=== PATIENT | female | born 1950 | race Caucasian/White ===

== ENCOUNTER 2017-02-27 19:17 | Inpatient (IN) | payer MEDICARE, MEDICAID ==
--- NOTE | 2017-02-27 20:10 | ED Physician Chart ---
Chief Complaint/HPI - Patient Information Date Seen:: 02/27/17 Time Seen:: 19:50 Chief Complaint:: agitation and hallucinations History of Present Illness:: Pt. sent for julee-psych admit, Dr. Godfrey, Dr. Drummond. delusions, agitation. Vitals:: Vital Signs - 8 hr 02/27/17 19:30 Temp 97.7 F HR 80 RR 18 BP 134/62 O2 Sat % 98 Historian:: EMS Review of Systems - Review of Systems General/Constitutional: No fever, No chills Skin: No skin lesions Head: No headache ENT: No earache, No sore throat Neck: No neck pain Cardio Vascular: No chest pain, No palpitations Pulmonary: No SOB, No cough GI: No nausea, No vomiting, No diarrhea G/U: No dysuria Psychiatric: Prior psych history Neurological: No syncope, No focal symptoms Past Medical History - Past Medical History Past Medical History: HTN, DM Family History: Diabetes [place] Social History: Non Smoker, No Alcohol Surgical History: other (difficult historian) Psychiatricy History: Schizophrenia Medication Reviewed:: vits, iron, glipizide, metformin, januvia, risperdal, lithium, ativan Family Medical History - Family Member Mother History Unknown: Yes (no known congenital disease) Physical Exam - Physical Examination General/Constitutional: Awake, Well-developed, well-nourished, Alert, No distress, Non-toxic appearing Head: Atraumatic Eyes: Lids, conjuctiva normal, PERRL, EOMI Skin: Nl inspection ENMT: External ears, nose nl Neck: Nontender, Full ROM w/o pain Respiratory: Nl effort/Exclusion, Clear to Auscultation Cardio Vascular: RRR, No murmur, gallop, rubs GI: No tenderness/rebounding/guarding : No CVA tenderness Extremities: No tenderness or effusion Neuro/Psych: Normal motor strength, Judgement/insight normal Other Neuro/Psych comments:: Pt. seems confused or uncooperative regarding date, but generally is oriented to her situation. Knows she is in an ER. Labs/Radiology/EKG Results - Lab Results Results: CXR: NAD. No cardiomeg. No free air or fluid. no infiltrate. EKG: NSR at 86. nl. axis. Poor R wave progression. No acute ST changes. WBC 11.2, H/H = 13.3/39.2 CMP shows Na of 127. BUN/creat = 18/0.7 Amylase and lipase are normal or low. Cardiac markers are normal EtOH negligible. TSH normal Li level pending ED Septic Shock - . Is Septic Shock (SBP<90, OR Lactate>4 mmol\L) present?: No - <6hrs of presentation: Vital Signs: Vital Signs - 8 hr // 19:30 Temp 97.7 F HR 80 RR 18 BP 134/62 O2 Sat % 98 Reassessment (Disposition) - Diagnosis Diagnosis:: Dx: 1. Acute agitation, julee-psych evaluation 2. Hyponatremia - Patient Disposition Accepting Physician:: Dr. Godfrey Time Called:: 2209 Time Responded:: 22:10 Admitted to:: [facility] Admitting Medical Physician:: Dr. Godfrey Admitting Psych Physician:: Dr. Baker Condition at Disposition:: Stable
[2017-02-27 20:45] LABS: % BASOPHILS 0.8 % (0.0-2.0); % EOSINOPHILS 5.7 % (0.0-5.0); % LYMPHOCYTES 15.6 % (20.0-50.0); % MONOCYTES 3.9 % (2.0-10.0); HEMATOCRIT 39.2 % (35.0-45.0); HEMOGLOBIN 13.3 gm/dL (11.7-16.1); MEAN CELL VOLUME 80.5 fl (81-100); MEAN CORPUSCULAR HEMOGLOBIN 27.3 pg (27.0-31.0); MEAN CORPUSCULAR HGB CONC 33.9 pg (28.0-36.0); MEAN PLATELET VOLUME 6.8 fl; NEUTROPHILE ABSOLUTE 8.4 Th/cmm (1.8-8.0); PLATELET COUNT 551 Th/cmm (150-400); RED BLOOD COUNT 4.87 Mil/cmm (3.80-5.20); RED CELL DISTRIBUTION WIDTH 14.7 % (11.5-20.0); WHITE BLOOD COUNT 11.2 Th/cmm (4.8-10.8)
[2017-02-27 20:59] LABS: ALB/GLOB RATIO 1.4 (1.0-1.8); ALKALINE PHOSPHATASE 84 U/L (34-104); AMYLASE SERUM 27 U/L (29-103); ANION GAP 9.6 (7.0-16.0); BILIRUBIN,TOTAL 0.3 mg/dL (0.3-1.0); BUN - UREA NITROGEN 18 mg/dL (7-25); BUN/CREATININE RATIO 25.7; CALCIUM SERUM 10.5 mg/dL (8.6-10.3); CARBON DIOXIDE 25.4 mEq/L (21.0-31.0); CHLORIDE 96 mEq/L (98-107); CREATININE - SERUM 0.7 mg/dL (0.6-1.2); GLUCOSE 178 mg/dL (70-105); LIPASE 46 U/L (11-82); SGOT 17 U/L (13-39); SGPT/ALT 18 U/L (7-52); SODIUM SERUM 127 mEq/L (136-145)
[2017-02-27 21:21] LABS: CREATINE KINASE MB 1.3 ng/mL (0.6-6.3)
[2017-02-27] MEDS ORDERED: Sodium Chloride 0.9% 1,000 ML IV ONE (21:46)
[2017-02-27] MEDS ORDERED: Magnesium Hydroxide (MOM) 30 mL UDC PO PRN (22:14)
[2017-02-27 22:26] LABS: URINE BILIRUBIN NEGATIVE (NEGATIVE); URINE BLOOD NEGATIVE (NEGATIVE); URINE COLOR YELLOW; URINE EPITHELIAL CELLS FEW /lpf (FEW); URINE GLUCOSE (UA) NEGATIVE (NEGATIVE); URINE KETONE NEGATIVE (NEGATIVE); URINE PROTEIN NEGATIVE (NEGATIVE); URINE RBC 0-2 /hpf (0-5); URINE UROBILINOGEN 0.2 E.U./dL (0.2 - 1.0); URINE WBC 0-2 /hpf (0-5)
[2017-02-27 22:27] LABS: URINE BACTERIA FEW /hpf (NONE SEEN)
[2017-02-27 22:31] LABS: AMPHETAMINE URINE NEGATIVE (NEGATIVE); BARBITURATES URINE NEGATIVE (NEGATIVE); METHADONE URINE NEGATIVE (NEGATIVE)
[2017-02-28 00:11] VITALS: BP 151/70
[2017-02-28] MEDS ORDERED: Non-Formulary Item 1 EA (Melatonin [Melatonin] 6 MG) PO PRN (00:16)
--- NOTE | 2017-02-28 00:31 | Admit Criteria Form ---
Admit Criteria Forms - Admit Criteria Diagnosis: PSYCHIATRIC DISORDERS Clinical Indications for Inpatient Care (Place 'X' for any and all applicable criteria): Ongoing inpatient care may be needed for ANY ONE of the following(1)(2)(3)(4)(6) (7)(8): [ ]I. Danger to self or others not manageable at lower level of care. [ ]II. Grave disability (eg, inability to perform self care necessary at lower level of care) [ ]III. Agitation or inappropriate behavior interfering with care for primary condition (eg, attempting to discontinue lines or drains prematurely, unable to cooperate with respiratory care) [X]IV. Severe disability or disorder indicated by ALL of the following: [X]a) Severe behavioral health disorder-related symptoms or condition indicated by ANY ONE of the following: [ ]i) Severe problem with cognition, memory, judgment, or impulse control [X]ii) Severe clinical manifestations (eg, hallucinations, delusions, other acute psychotic symptoms, salome, extreme agitation or anxiety) [X]b) Patient management at lower level of care is not feasible until acute intervention or modification is initiated. Extended stay beyond goal length of stay for the primary condition may be indicated when ANY ONE of the following is present: (1)(2)(3)(4): [ ]a) Patient is a danger to self or others and not manageable at lower level of care. [ ]b) Behavior crisis management, including physical or chemical restraints, is required and is not available at a lower level of care. [ ]c) Behavioral symptoms (e.g., agitation, somnolence, inappropriate behavior) are present, and are not manageable at a lower level of care. [ ]d) Patient cannot understand follow-up treatment and crisis plan. [ ]e) Provider and supports are not sufficiently available at lower level of care. [ ]f) Patient cannot participate (e.g., verify absence of plan for harm) and is in needed of monitoring. The original [facility] content created by [facility] has been revised. The portions of the content which have been revised are identified through the use of italic text or in bold, and [facility] has neither reviewed nor approved the modified material. All other unmodified content is copyright [facility]. Please see references footnoted in the original [facility] edition 2016 Admit Criteria Met?: Yes
[2017-02-28] MEDS: INSULIN ASPART, RECOMBINANT 100 UNITS/ML SUBQ SCH ×4 (07:22→21:00)
[2017-02-28] MEDS ORDERED: Non-Formulary Item 1 EA (Metformin Hcl [Metformin Hcl Er] 1,000 MG) PO SCH (09:00)
[2017-02-28] MEDS ORDERED: Calcium Carb/Vit D 500 mg/200 U Tab PO SCH (09:00)
[2017-02-28] MEDS: Ferrous Sulfate 325 MG TAB PO SCH (09:41)
[2017-02-28] MEDS: Multivitamin Tab PO SCH (09:41)
--- NOTE | 2017-02-28 09:53 | Diagnostic Imaging Report ---
Portable chest x-ray History: Cough Allowing for portable technique the heart size is normal. No focal pulmonary parenchymal processes. No hilar or mediastinal abnormalities. Impression: No acute abnormalities.
--- NOTE | 2017-02-28 20:01 | History & Physical ---
CHIEF COMPLAINT: Medical evaluation and clearance and the patient admitted to inpatient psych. HISTORY OF PRESENT ILLNESS: This is a 67-year-old female with history of diabetes, hypertension, hypercholesterolemia was admitted from nursing facility secondary to agitation. The patient apparently not eating well at the nursing facility and not taking her medications. The patient denies chest pain or shortness of breath. PAST MEDICAL HISTORY: As mentioned in the history of present illness. PAST SURGICAL HISTORY: Denies any surgeries in the past. ALLERGIES: BACTRIM AND TRIMETHOPRIM. MEDICATIONS: The patient is on aspirin, calcium, fenofibrate, glipizide, lithium, lorazepam, magnesium, melatonin, metformin, multivitamin, Trileptal, Januvia, risperidone. FAMILY HISTORY: Noncontributory. SOCIAL HISTORY: The patient is a nonsmoker and nondrinker. REVIEW OF SYSTEMS: This is limited. The patient ____ more questions. We will try to get more information from the Sister, Diana Durant, from [place], number ____. We will also try to get information from nursing staff at [facility], number [phone] as well as from Dr. Haque who normally follows the patient. PHYSICAL EXAMINATION: VITAL SIGNS: Blood pressure 126/____, respirations 18, pulse 69, temperature 97.1. GENERAL: Elderly female, appears her stated age. NECK: Supple. No mass. LUNGS: Equal breath sounds, otherwise clear to auscultation. HEART: Regular rhythm without appreciable murmurs. ABDOMEN: Soft and nontender. EXTREMITIES: Positive excoriation. Atrophy. Dry skin. NEUROLOGIC: Limited, moving all 4 extremities. LABORATORY DATA: WBC ____, hemoglobin 13.3, platelets 551. Sodium 127, potassium 4.0, BUN 18, creatinine 0.7. Blood sugar 178. Calcium 10.5. ASSESSMENT AND PLAN: Diabetes, anemia, hypertension, hypercholesterolemia, leukocytosis, hyponatremia, gastroesophageal reflux disease, hyperglycemia, thrombocytosis. We will continue the patient on ADA diet and insulin sliding scale. We will make some adjustment. We will correct electrolyte abnormalities, sodium ____ was added. We will continue current care. Psychiatry to manage the patient for psych issues. The patient to follow up with her regular physician upon discharge. JOB# [id number]
[2017-02-28] MEDS ORDERED: FENOFIBRATE MICRONIZED 67 MG PO SCH (21:00)
[2017-02-28] MEDS: Fenofibrate, Micronized 134 mg Cap PO SCH (21:01)
--- NOTE | 2017-03-01 04:49 | Psychosocial Evaluation ---
FACILITY: [facility] PATIENT NAME: JOSE VELAZQUEZ MR#: [id number] CLINICIAN: Lorne Drummond M.D. DATE OF ADMISSION: 02/27/2017 DATE OF VISIT: 02/28/2017 IDENTIFICATION: This is a 67-year-old female admitted on voluntary basis. HISTORY OF PRESENT ILLNESS: The patient has a history of schizophrenia. She is decompensated with increase in aggression, paranoia, or striking out at staff, extremely delusional. She believes people are conspiring against her. She is unable to care for self, also still very delusional. She believes that the people are trying to kill her and she is hearing voices. She is admitted on ____ status. PAST PSYCHIATRIC HISTORY: Prior treatment for depression and psychosis. PAST MEDICAL HISTORY: Deferred. CURRENT MEDICATIONS: [place], Trileptal, and Risperdal. SOCIAL HISTORY: Lives in long term. She is . MENTAL STATUS: Alert and oriented x 3. Speech is slow. Thought process is tangential. Thought content is positive for paranoid delusions and hallucinations. Mood is dysphoric and anxious. Judgment is extremely poor. She refuses memory testing. DIFFERENTIAL DIAGNOSES: AXIS I: Schizoaffective, acute aspiration. AXIS II: Deferred. AXIS III: None. PLAN: To admit to inpatient unit for medication management, group therapy, and individual therapy. ESTIMATED LENGTH OF STAY: 7 days. DISCHARGE CRITERIA: Stable med with adequate discharge plan. JOB# [id number] JAGDISH/DAMAIR
[2017-03-01] MEDS: INSULIN ASPART, RECOMBINANT 100 UNITS/ML SUBQ SCH ×4 (06:59→20:27)
[2017-03-01] MEDS: Ferrous Sulfate 325 MG TAB PO SCH (09:07)
[2017-03-01] MEDS: Multivitamin Tab PO SCH (09:07)
--- NOTE | 2017-03-01 15:47 | Internal Medicine Prog Note ---
Internal Medicine Subjective - Subjective Patient seen and examined:: with staff, chart reviewed Patient is:: verbal, interactive Per staff patient is:: no adverse event, no episodes of fall, confused Internal Medicine Objective - Results Result Diagrams: 02/27/17 20:32 02/27/17 20:32 Recent Labs: Laboratory Last Values WBC 11.2 Th/cmm (4.8-10.8) H 02/27/17 20:32 RBC 4.87 Mil/cmm (3.80-5.20) 02/27/17 20:32 Hgb 13.3 gm/dL (11.7-16.1) 02/27/17 20:32 Hct 39.2 % (35.0-45.0) 02/27/17 20:32 MCV 80.5 fl (81-100) L 02/27/17 20:32 MCH 27.3 pg (27.0-31.0) 02/27/17 20: MCHC Differential 33.9 pg (28.0-36.0) 02/27/17 20:32 RDW 14.7 % (11.5-20.0) 02/27/17 20:32 Plt Count 551 Th/cmm (150-400) H 02/27/17 20:32 MPV 6.8 fl 02/27/17 20:32 Neutrophils % 74.0 % (40.0-80.0) 02/27/17 20:32 Lymphocytes % 15.6 % (20.0-50.0) L 02/27/17 20:32 Monocytes % 3.9 % (2.0-10.0) 02/27/17 20:32 Eosinophils % 5.7 % (0.0-5.0) H 02/27/17 20:32 Basophils % 0.8 % (0.0-2.0) 02/27/17 20:32 Sodium 127 mEq/L (136-145) L 02/27/17 20:32 Potassium 4.0 mEq/L (3.5-5.1) 02/27/17 20:32 Chloride 96 mEq/L (98-107) L 02/27/17 20:32 Carbon Dioxide 25.4 mEq/L (21.0-31.0) 02/27/17 20:32 Anion Gap 9.6 (7.0-16.0) 02/27/17 20:32 BUN 18 mg/dL (7-25) 02/27/17 20:32 Creatinine 0.7 mg/dL (0.6-1.2) 02/27/17 20:32 Est GFR ( Amer) > 60.0 ml/min (>90) 02/27/17 20:32 Est GFR (Non-Af Amer) > 60.0 ml/min 02/27/17 20:32 BUN/Creatinine Ratio 25.7 02/27/17 20:32 Glucose 178 mg/dL (70-105) H 02/27/17 20:32 POC Glucose 244 MG/DL (70 - 105) H 03/01/17 11:29 Calcium 10.5 mg/dL (8.6-10.3) H 02/27/17 20:32 Total Bilirubin 0.3 mg/dL (0.3-1.0) 02/27/17 20:32 AST 17 U/L (13-39) 02/27/17 20:32 ALT 18 U/L (7-52) 02/27/17 20:32 Alkaline Phosphatase 84 U/L (34-104) 02/27/17 20:32 Creatine Kinase 50 U/L (30-223) 02/27/17 20:32 CK-MB (CK-2) 1.3 ng/mL (0.6-6.3) 02/27/17 20:32 Troponin I 0.01 ng/mL (0.01-0.05) 02/27/17 20:32 Total Protein 7.8 gm/dL (6.0-8.3) 02/27/17 20:32 Albumin 4.6 gm/dL (3.7-5.3) 02/27/17 20:32 Globulin 3.2 gm/dL 02/27/17 20:32 Albumin/Globulin Ratio 1.4 (1.0-1.8) 02/27/17 20:32 Amylase 27 U/L (29-103) L 02/27/17 20:32 Lipase 46 U/L (11-82) 02/27/17 20:32 TSH 1.36 uIU/ml (0.34-5.60) 02/27/17 20:32 Urine Source CLEAN C 02/27/17 21:55 Urine Color YELLOW 02/27/17 21:55 Urine Clarity HAZY (CLEAR) 02/27/17 21:55 Urine pH 7.0 02/27/17 21:55 Ur Specific [place] 1.020 (1.005-1.030) 02/27/17 21:55 Urine Protein NEGATIVE mg/dL (NEGATIVE) 02/27/17 21:55 Urine Glucose (UA) NEGATIVE mg/dL (NEGATIVE) 02/27/17 21:55 Urine Ketones NEGATIVE mg/dL (NEGATIVE) 02/27/17 21:55 Urine Blood NEGATIVE (NEGATIVE) 02/27/17 21:55 Urine Nitrate NEGATIVE (NEGATIVE) 02/27/17 21:55 Urine Bilirubin NEGATIVE (NEGATIVE) 02/27/17 21:55 Urine Urobilinogen 0.2 E.U./dL (0.2 - 1.0) 02/27/17 21:55 Ur Leukocyte Esterase NEGATIVE (NEGATIVE) 02/27/17 21:55 Urine RBC 0-2 /hpf (0-5) 02/27/17 21:55 Urine WBC 0-2 /hpf (0-5) 02/27/17 21:55 Ur Epithelial Cells FEW /lpf (FEW) 02/27/17 21:55 Urine Bacteria FEW /hpf (NONE SEEN) 02/27/17 21:55 Urine Opiates Screen NEGATIVE (NEGATIVE) 02/27/17 21:55 Urine Methadone Screen NEGATIVE (NEGATIVE) 02/27/17 21:55 Ur Barbiturates Screen NEGATIVE (NEGATIVE) 02/27/17 21:55 Ur Tricyclics Screen NEGATIVE (NEGATIVE) 02/27/17 21:55 Ur Phencyclidine Scrn NEGATIVE (NEGATIVE) 02/27/17 21:55 Amphetamines Screen NEGATIVE (NEGATIVE) 02/27/17 21:55 U Methamphetamines Scrn NEGATIVE (NEGATIVE) 02/27/17 21:55 U Benzodiazepines Scrn NEGATIVE (NEGATIVE) 02/27/17 21:55 Svensen 0.23 MEQ/L (0.50-1.00) 02/28/17 20:33 U Cocaine Metab Screen NEGATIVE (NEGATIVE) 02/27/17 21:55 U Cannabinoids Screen NEGATIVE (NEGATIVE) 02/27/17 21:55 Ethyl Alcohol < 10 mg/dL (0-10) 02/27/17 20:32 RPR NONREACTIVE (NONREACTIVE) 02/27/17 20:32 - Physical Exam Vitals and I&O: Vital Signs Temp 97.4 F 03/01/17 07:00 Pulse 71 03/01/17 08:00 Resp 18 03/01/17 08:00 BP 119/68 03/01/17 07:00 Pulse Ox 97 03/01/17 07:00 Intake & Output 02/28/17 03/01/17 03/01/17 18:59 06:59 18:59 Intake Total 960 Balance 960 Weight (lbs) 55.928 kg Intake: Oral 960 Other: # Voids 3 2 # Bowel Movements 1 Active Medications: Current Medications Acetaminophen (Tylenol) 650 mg PO Q4HR PRN PRN Reason: Pain or Fever >101 Stop: 04/28/17 22:15 Aspirin (Ecotrin) 81 mg PO DAILY ON LICENSE OF [facility] Stop: 04/29/17 08:59 Last Admin: 03/01/17 09:07 Dose: 81 mg Calcium Carbonate (Os-Magno) 500 mg PO DAILY RICKY Stop: 04/29/17 08:59 Last Admin: 03/01/17 09:07 Dose: 500 mg Fenofibrate (Tricor) 134 mg PO HS ON LICENSE OF [facility] Stop: 04/29/17 20:59 Last Admin: 02/28/17 21:01 Dose: 134 mg Ferrous Sulfate (Iron) 325 mg PO DAILY ON LICENSE OF [facility] Stop: 04/29/17 08:59 Last Admin: 03/01/17 09:07 Dose: 325 mg Glipizide (Glucotrol) 20 mg PO BIDAC ON LICENSE OF [facility] Stop: 04/29/17 07:29 Last Admin: 03/01/17 06:38 Dose: 20 mg Insulin Aspart (Novolog) 0 units SUBQ ACHS RICKY PRN Reason: Protocol Stop: 04/29/17 07:29 Last Admin: 03/01/17 11:33 Dose: 2 units Svensen Carbonate (Eskalith) 450 mg PO HS ON LICENSE OF [facility] Stop: 04/29/17 20:59 Last Admin: 02/28/17 21:01 Dose: 450 mg Lorazepam (Ativan) 2 mg PO Q6HR PRN PRN Reason: Agitation Magnesium Hydroxide (Milk Of Magnesia) 30 ml PO HS PRN PRN Reason: Constipation Stop: 04/28/17 22:13 Metformin HCl (Glucophage) 1,000 mg PO BID RICKY Stop: 04/29/17 08:59 Last Admin: 03/01/17 09:07 Dose: 1,000 mg Multivitamins/Vitamin C (Theragran) 1 tab PO DAILY RICKY Stop: 04/29/17 08:59 Last Admin: 03/01/17 09:07 Dose: 1 tab Mupirocin (Bactroban Oint) 1 appl TP BID ON LICENSE OF [facility] Stop: 03/06/17 16:59 Oxcarbazepine (Trileptal) 600 mg PO BID RICKY PRN Reason: Protocol Stop: 04/29/17 08:59 Last Admin: 03/01/17 09:08 Dose: 600 mg Risperidone (Risperdal) 1 mg PO BID RICKY PRN Reason: Protocol Stop: 04/29/17 08:59 Last Admin: 03/01/17 09:07 Dose: 1 mg Sitagliptin Phosphate (Januvia) 100 mg PO DAILY RICKY Stop: 04/29/17 08:59 Last Admin: 03/01/17 09:07 Dose: 100 mg Sodium Chloride (Nacl Tab) 1 gm PO BID RICKY Stop: 04/29/17 08:59 Last Admin: 03/01/17 09:07 Dose: 1 gm General: demented HEENT: NC/AT, PERRLA Neck: Supple, No JVD Lungs: CTAB Cardiovascular: RRR, Normal S1, Normal S2 Abdomen: soft non-tender, globular, positive bowel sound Extremities: excoriation Neurological: disorganized, unable to follow command Internal Medicine Assmt/Plan - Assessment Assessment: dm \anemia htn elevated chol low na gerd hyperglecemia - Plan Plan: ada diet low na diet cont on statin cont on ppi dw rn Nutritional Asmnt/Malnutr-PDOC - Dietary Evaluation Malnutrition Findings (Please click <Entered> for more info): Nutritional Asmnt/Malnutrition Start: 03/01/17 15: 04 Text: Status: Complete Freq: Document 03/01/17 15:04 GSUN (Rec: 03/01/17 15:20 [email or web address]) Nutritional Asmnt/Malnutrition Patient General Information Nutritional Screening Consult Diagnosis Agitation Pertinent Medical Hx/Surgical Hx DM, HTN, hypercholesterolemia, GERD, thrombocytosis Subjective Information 67 year old female from SNF. RD consult for wounds, scar tissue. Pt is a poor historian , able to repeatedly ask for coffee, however kept going off topic and was unable to answer RD's questions. Pt appeared thin, mild wasting to chest and legs noted. Pt is edentulous, denied difficulties chewing. Avg PO intake 100% of meals, meeting nutritional needs. Current Diet Order/ Nutrition Support Regular Pertinent Medications Os-Magno, Iron, Glucotrol, Novolog, MOM, Glucophage, Theragran Pertinent Labs 02/27: glucose 178H. Nutritional Hx/Data Height 1.7 m Height (Calculated Centimeters) 170.2 Current Weight (lbs) 55.928 kg Weight (Calculated Kilograms) 55.9 Weight (Calculated Grams) 22628.9 Wallace Body Weight 135 Weight Status Approriate GI Symptoms Food Allergies No Usual diet at home [place]: regular, EMMA, all vegetables cooked, thin liquids Skin Integrity/Comment: Prasanna 22. Current %PO Good (75-100%) Estimated Nutritional Goals Calories/Kcals/Kg IBW 135lb/61.4kg Kcals Calculated 1535-1842kcal (25-30kcal/kg) Protein g/kg: IBW Protein Calculated 61g (1g/kg) Fluid: ml 1535-1842ml (1ml/kcal) Nutritional Problem 1. Problem Problem Altered nutrition related laboratory values related to Etiology DM aeb Signs/Symptoms: H&P, elevated glucose levels, pt is on DM medications Intervention/Recommendation Comments 1. Recommend [address] to promtoe glycemic control. Expected Outcomes/Goals Expected Outcomes/Goals 1. PO intake continue to meet at least 75% of estimated nutritional needs.
[2017-03-01] MEDS: Fenofibrate, Micronized 134 mg Cap PO SCH (20:48)
--- NOTE | 2017-03-01 22:48 | Progress Notes ---
The patient is seen in inpatient unit. The patient is on medications for severe psychosis on trial____ and Risperdal, Ativan, Trileptal. She has severe mood swings, paranoid delusions, irritability and agitation. She is responding to internal stimuli. She is on trial of medications. The patient has a history of conservatorship. She remains highly delusional, hearing voices, responding to internal stimuli, no ____way to take care of herself, feels there is something wrong with her, people are bothering her and conspiring against her. Her speech is fragmented. Her behavior is labile, she has difficulty going to group therapy and individual therapy. Plan to continue close observation, medication management, titrate medications for symptom relief. We will provide injectable medication if she ____refuse oral medication. JOB# [id number]
[2017-03-02] MEDS: INSULIN ASPART, RECOMBINANT 100 UNITS/ML SUBQ SCH ×4 (06:46→20:57)
[2017-03-02] MEDS: Multivitamin Tab PO SCH (09:03)
[2017-03-02] MEDS: Ferrous Sulfate 325 MG TAB PO SCH (09:04)
[2017-03-02] MEDS: Fenofibrate, Micronized 134 mg Cap PO SCH (20:42)
--- NOTE | 2017-03-02 21:48 | Internal Medicine Prog Note ---
Internal Medicine Subjective - Subjective Patient seen and examined:: with staff, chart reviewed Patient is:: awake, verbal, interactive Per staff patient is:: no adverse event, confused Internal Medicine Objective - Results Result Diagrams: 02/27/17 20:32 02/27/17 20:32 Recent Labs: Laboratory Last Values WBC 11.2 Th/cmm (4.8-10.8) H 02/27/17 20:32 RBC 4.87 Mil/cmm (3.80-5.20) 02/27/17 20:32 Hgb 13.3 gm/dL (11.7-16.1) 02/27/17 20:32 Hct 39.2 % (35.0-45.0) 02/27/17 20:32 MCV 80.5 fl (81-100) L 02/27/17 20:32 MCH 27.3 pg (27.0-31.0) 02/27/17 20: MCHC Differential 33.9 pg (28.0-36.0) 02/27/17 20:32 RDW 14.7 % (11.5-20.0) 02/27/17 20:32 Plt Count 551 Th/cmm (150-400) H 02/27/17 20:32 MPV 6.8 fl 02/27/17 20:32 Neutrophils % 74.0 % (40.0-80.0) 02/27/17 20:32 Lymphocytes % 15.6 % (20.0-50.0) L 02/27/17 20: Monocytes % 3.9 % (2.0-10.0) 02/27/17 20: Eosinophils % 5.7 % (0.0-5.0) H 02/27/17 20:32 Basophils % 0.8 % (0.0-2.0) 02/27/17 20:32 Sodium 127 mEq/L (136-145) L 02/27/17 20:32 Potassium 4.0 mEq/L (3.5-5.1) 02/27/17 20:32 Chloride 96 mEq/L (98-107) L 02/27/17 20:32 Carbon Dioxide 25.4 mEq/L (21.0-31.0) 02/27/17 20:32 Anion Gap 9.6 (7.0-16.0) 02/27/17 20:32 BUN 18 mg/dL (7-25) 02/27/17 20:32 Creatinine 0.7 mg/dL (0.6-1.2) 02/27/17 20:32 Est GFR ( Amer) > 60.0 ml/min (>90) 02/27/17 20:32 Est GFR (Non-Af Amer) > 60.0 ml/min 02/27/17 20:32 BUN/Creatinine Ratio 25.7 02/27/17 20:32 Glucose 178 mg/dL (70-105) H 02/27/17 20:32 POC Glucose 215 MG/DL (70 - 105) H 03/02/17 20:56 Calcium 10.5 mg/dL (8.6-10.3) H 02/27/17 20:32 Total Bilirubin 0.3 mg/dL (0.3-1.0) 02/27/17 20:32 AST 17 U/L (13-39) 02/27/17 20:32 ALT 18 U/L (7-52) 02/27/17 20:32 Alkaline Phosphatase 84 U/L (34-104) 02/27/17 20:32 Creatine Kinase 50 U/L (30-223) 02/27/17 20:32 CK-MB (CK-2) 1.3 ng/mL (0.6-6.3) 02/27/17 20:32 Troponin I 0.01 ng/mL (0.01-0.05) 02/27/17 20:32 Total Protein 7.8 gm/dL (6.0-8.3) 02/27/17 20:32 Albumin 4.6 gm/dL (3.7-5.3) 02/27/17 20:32 Globulin 3.2 gm/dL 02/27/17 20:32 Albumin/Globulin Ratio 1.4 (1.0-1.8) 02/27/17 20:32 Amylase 27 U/L (29-103) L 02/27/17 20:32 Lipase 46 U/L (11-82) 02/27/17 20:32 TSH 1.36 uIU/ml (0.34-5.60) 02/27/17 20:32 Urine Source CLEAN C 02/27/17 21:55 Urine Color YELLOW 02/27/17 21:55 Urine Clarity HAZY (CLEAR) 02/27/17 21:55 Urine pH 7.0 02/27/17 21:55 Ur Specific [place] 1.020 (1.005-1.030) 02/27/17 21:55 Urine Protein NEGATIVE mg/dL (NEGATIVE) 02/27/17 21:55 Urine Glucose (UA) NEGATIVE mg/dL (NEGATIVE) 02/27/17 21:55 Urine Ketones NEGATIVE mg/dL (NEGATIVE) 02/27/17 21:55 Urine Blood NEGATIVE (NEGATIVE) 02/27/17 21:55 Urine Nitrate NEGATIVE (NEGATIVE) 02/27/17 21:55 Urine Bilirubin NEGATIVE (NEGATIVE) 02/27/17 21:55 Urine Urobilinogen 0.2 E.U./dL (0.2 - 1.0) 02/27/17 21:55 Ur Leukocyte Esterase NEGATIVE (NEGATIVE) 02/27/17 21:55 Urine RBC 0-2 /hpf (0-5) 02/27/17 21:55 Urine WBC 0-2 /hpf (0-5) 02/27/17 21:55 Ur Epithelial Cells FEW /lpf (FEW) 02/27/17 21:55 Urine Bacteria FEW /hpf (NONE SEEN) 02/27/17 21:55 Urine Opiates Screen NEGATIVE (NEGATIVE) 02/27/17 21:55 Urine Methadone Screen NEGATIVE (NEGATIVE) 02/27/17 21:55 Ur Barbiturates Screen NEGATIVE (NEGATIVE) 02/27/17 21:55 Ur Tricyclics Screen NEGATIVE (NEGATIVE) 02/27/17 21:55 Ur Phencyclidine Scrn NEGATIVE (NEGATIVE) 02/27/17 21:55 Amphetamines Screen NEGATIVE (NEGATIVE) 02/27/17 21:55 U Methamphetamines Scrn NEGATIVE (NEGATIVE) 02/27/17 21:55 U Benzodiazepines Scrn NEGATIVE (NEGATIVE) 02/27/17 21:55 [place] 0.23 MEQ/L (0.50-1.00) 02/28/17 20:33 U Cocaine Metab Screen NEGATIVE (NEGATIVE) 02/27/17 21:55 U Cannabinoids Screen NEGATIVE (NEGATIVE) 02/27/17 21:55 Ethyl Alcohol < 10 mg/dL (0-10) 02/27/17 20:32 RPR NONREACTIVE (NONREACTIVE) 02/27/17 20:32 - Physical Exam Vitals and I&O: Vital Signs Temp 98.0 F 03/02/17 14:00 Pulse 65 03/02/17 14:00 Resp 20 03/02/17 14:00 BP 100/48 03/02/17 14:00 Pulse Ox 99 03/02/17 14:00 Intake & Output 03/02/17 03/02/17 03/03/17 06:59 18:59 06:59 Intake Total 480 1000 Balance 480 1000 Intake: Oral 480 1000 Other: # Voids 1 3 # Bowel Movements 1 Active Medications: Current Medications Acetaminophen (Tylenol) 650 mg PO Q4HR PRN PRN Reason: Pain or Fever >101 Stop: 04/28/17 22:15 Aspirin (Ecotrin) 81 mg PO DAILY [facility] Stop: 04/29/17 08:59 Last Admin: 03/02/17 09:04 Dose: 81 mg Calcium Carbonate (Os-Magno) 500 mg PO DAILY [facility] Stop: 04/29/17 08:59 Last Admin: 03/02/17 09:04 Dose: 500 mg Fenofibrate (Tricor) 134 mg PO HS [facility] Stop: 04/29/17 20:59 Last Admin: 03/02/17 20:42 Dose: 134 mg Ferrous Sulfate (Iron) 325 mg PO DAILY [facility] Stop: 04/29/17 08:59 Last Admin: 03/02/17 09:04 Dose: 325 mg Glipizide (Glucotrol) 20 mg PO BIDAC [facility] Stop: 04/29/17 07:29 Last Admin: 03/02/17 16:55 Dose: Not Given Insulin Aspart (Novolog) 0 units SUBQ ACHS [facility] PRN Reason: Protocol Stop: 04/29/17 07:29 Last Admin: 03/02/17 20:57 Dose: 2 units [place] Carbonate (Eskalith) 450 mg PO HS [facility] Stop: 04/29/17 20:59 Last Admin: 03/02/17 20:42 Dose: 450 mg Lorazepam (Ativan) 2 mg PO Q6HR PRN PRN Reason: Agitation Magnesium Hydroxide (Milk Of Magnesia) 30 ml PO HS PRN PRN Reason: Constipation Stop: 04/28/17 22:13 Metformin HCl (Glucophage) 1,000 mg PO BID [facility] Stop: 04/29/17 08:59 Last Admin: 03/02/17 16:57 Dose: Not Given Multivitamins/Vitamin C (Theragran) 1 tab PO DAILY [facility] Stop: 04/29/17 08:59 Last Admin: 03/02/17 09:03 Dose: 1 tab Mupirocin (Bactroban Oint) 1 appl TP BID [facility] Stop: 03/06/17 16:59 Last Admin: 03/02/17 16:56 Dose: Not Given Oxcarbazepine (Trileptal) 600 mg PO BID [facility] PRN Reason: Protocol Stop: 04/29/17 08:59 Last Admin: 03/02/17 16:56 Dose: Not Given Risperidone (Risperdal) 1 mg PO BID [facility] PRN Reason: Protocol Stop: 04/29/17 08:59 Last Admin: 03/02/17 16:56 Dose: Not Given Sitagliptin Phosphate (Januvia) 100 mg PO DAILY [facility] Stop: 04/29/17 08:59 Last Admin: 03/02/17 09:03 Dose: 100 mg Sodium Chloride (Nacl Tab) 1 gm PO BID [facility] Stop: 04/29/17 08:59 Last Admin: 03/02/17 16:56 Dose: Not Given General: demented HEENT: NC/AT, PERRLA Neck: Supple Lungs: CTAB Cardiovascular: RRR, Normal S1, Normal S2 Abdomen: soft non-tender, globular, positive bowel sound Extremities: excoriation Neurological: no change Internal Medicine Assmt/Plan - Assessment Assessment: dm \anemia htn elevated chol low na gerd hyperglecemia - Plan Plan: ada diet low na diet cont on statin cont on ppi dw rn Nutritional Asmnt/Malnutr-PDOC - Dietary Evaluation Malnutrition Findings (Please click <Entered> for more info): Nutritional Asmnt/Malnutrition Start: 03/01/17 15: 04 Text: Status: Complete Freq: Document 03/01/17 15:04 GSUN (Rec: 03/01/17 15:20 GSRYAN [email or web address]) Nutritional Asmnt/Malnutrition Patient General Information Nutritional Screening Consult Diagnosis Agitation Pertinent Medical Hx/Surgical Hx DM, HTN, hypercholesterolemia, GERD, thrombocytosis Subjective Information 67 year old female from SNF. RD consult for wounds, scar tissue. Pt is a poor historian , able to repeatedly ask for coffee, however kept going off topic and was unable to answer RD's questions. Pt appeared thin, mild wasting to chest and legs noted. Pt is edentulous, denied difficulties chewing. Avg PO intake 100% of meals, meeting nutritional needs. Current Diet Order/ Nutrition Support Regular Pertinent Medications Os-Magno, Iron, Glucotrol, Novolog, MOM, Glucophage, Theragran Pertinent Labs 02/27: glucose 178H. Nutritional Hx/Data Height 1.7 m Height (Calculated Centimeters) 170.2 Current Weight (lbs) 55.928 kg Weight (Calculated Kilograms) 55.9 Weight (Calculated Grams) 59406.9 [place] Body Weight 135 Weight Status Approriate GI Symptoms Food Allergies No Usual diet at home [place]: regular, EMMA, all vegetables cooked, thin liquids Skin Integrity/Comment: Prasanna 22. Current %PO Good (75-100%) Estimated Nutritional Goals Calories/Kcals/Kg IBW 135lb/61.4kg Kcals Calculated 1535-1842kcal (25-30kcal/kg) Protein g/kg: IBW Protein Calculated 61g (1g/kg) Fluid: ml 1535-1842ml (1ml/kcal) Nutritional Problem 1. Problem Problem Altered nutrition related laboratory values related to Etiology DM aeb Signs/Symptoms: H&P, elevated glucose levels, pt is on DM medications Intervention/Recommendation Comments 1. Recommend [address] to promtoe glycemic control. Expected Outcomes/Goals Expected Outcomes/Goals 1. PO intake continue to meet at least 75% of estimated nutritional needs.
[2017-03-03] MEDS: INSULIN ASPART, RECOMBINANT 100 UNITS/ML SUBQ SCH ×4 (06:36→20:18)
--- NOTE | 2017-03-03 07:23 | Progress Notes ---
Chart is reviewed. The patient is interviewed. Staff was spoken to. The patient is still having mood swings. The patient is currently on Risperdal 1 mg twice a day and oxcarbazepine 600 mg twice a day. Even with these medications, the patient is still having the problem. The patient is also on lithium carbonate 450 mg at bedtime. No side effects to medications are noted at this time. ASSESSMENT: The patient is still impulsive. PLAN: To continue the patient with the current medications. I encouraged the patient to verbalize the concerns rather than to act out. JOB# [id number]
[2017-03-03] MEDS: Ferrous Sulfate 325 MG TAB PO SCH (08:11)
[2017-03-03] MEDS: Multivitamin Tab PO SCH (08:11)
--- NOTE | 2017-03-03 20:22 | Internal Medicine Prog Note ---
Internal Medicine Subjective - Subjective Patient seen and examined:: with staff, chart reviewed Patient is:: awake, verbal, interactive Per staff patient is:: no adverse event, no episodes of fall, confused Internal Medicine Objective - Results Result Diagrams: 02/27/17 20:32 02/27/17 20:32 Recent Labs: Laboratory Last Values WBC 11.2 Th/cmm (4.8-10.8) H 02/27/17 20:32 RBC 4.87 Mil/cmm (3.80-5.20) 02/27/17 20:32 Hgb 13.3 gm/dL (11.7-16.1) 02/27/17 20:32 Hct 39.2 % (35.0-45.0) 02/27/17 20:32 MCV 80.5 fl (81-100) L 02/27/17 20:32 MCH 27.3 pg (27.0-31.0) 02/27/17 20: MCHC Differential 33.9 pg (28.0-36.0) 02/27/17 20:32 RDW 14.7 % (11.5-20.0) 02/27/17 20:32 Plt Count 551 Th/cmm (150-400) H 02/27/17 20:32 MPV 6.8 fl 02/27/17 20:32 Neutrophils % 74.0 % (40.0-80.0) 02/27/17 20:32 Lymphocytes % 15.6 % (20.0-50.0) L 02/27/17 20:32 Monocytes % 3.9 % (2.0-10.0) 02/27/17 20:32 Eosinophils % 5.7 % (0.0-5.0) H 02/27/17 20: Basophils % 0.8 % (0.0-2.0) 02/27/17 20:32 Sodium 127 mEq/L (136-145) L 02/27/17 20:32 Potassium 4.0 mEq/L (3.5-5.1) 02/27/17 20:32 Chloride 96 mEq/L (98-107) L 02/27/17 20:32 Carbon Dioxide 25.4 mEq/L (21.0-31.0) 02/27/17 20:32 Anion Gap 9.6 (7.0-16.0) 02/27/17 20:32 BUN 18 mg/dL (7-25) 02/27/17 20:32 Creatinine 0.7 mg/dL (0.6-1.2) 02/27/17 20:32 Est GFR ( Amer) > 60.0 ml/min (>90) 02/27/17 20:32 Est GFR (Non-Af Amer) > 60.0 ml/min 02/27/17 20:32 BUN/Creatinine Ratio 25.7 02/27/17 20:32 Glucose 178 mg/dL (70-105) H 02/27/17 20:32 POC Glucose 155 MG/DL (70 - 105) H 03/03/17 20:03 Calcium 10.5 mg/dL (8.6-10.3) H 02/27/17 20:32 Total Bilirubin 0.3 mg/dL (0.3-1.0) 02/27/17 20:32 AST 17 U/L (13-39) 02/27/17 20:32 ALT 18 U/L (7-52) 02/27/17 20:32 Alkaline Phosphatase 84 U/L (34-104) 02/27/17 20:32 Creatine Kinase 50 U/L (30-223) 02/27/17 20:32 CK-MB (CK-2) 1.3 ng/mL (0.6-6.3) 02/27/17 20:32 Troponin I 0.01 ng/mL (0.01-0.05) 02/27/17 20:32 Total Protein 7.8 gm/dL (6.0-8.3) 02/27/17 20:32 Albumin 4.6 gm/dL (3.7-5.3) 02/27/17 20:32 Globulin 3.2 gm/dL 02/27/17 20:32 Albumin/Globulin Ratio 1.4 (1.0-1.8) 02/27/17 20:32 Amylase 27 U/L (29-103) L 02/27/17 20:32 Lipase 46 U/L (11-82) 02/27/17 20:32 TSH 1.36 uIU/ml (0.34-5.60) 02/27/17 20:32 Urine Source CLEAN C 02/27/17 21:55 Urine Color YELLOW 02/27/17 21:55 Urine Clarity HAZY (CLEAR) 02/27/17 21:55 Urine pH 7.0 02/27/17 21:55 Ur Specific [place] 1.020 (1.005-1.030) 02/27/17 21:55 Urine Protein NEGATIVE mg/dL (NEGATIVE) 02/27/17 21:55 Urine Glucose (UA) NEGATIVE mg/dL (NEGATIVE) 02/27/17 21:55 Urine Ketones NEGATIVE mg/dL (NEGATIVE) 02/27/17 21:55 Urine Blood NEGATIVE (NEGATIVE) 02/27/17 21:55 Urine Nitrate NEGATIVE (NEGATIVE) 02/27/17 21:55 Urine Bilirubin NEGATIVE (NEGATIVE) 02/27/17 21:55 Urine Urobilinogen 0.2 E.U./dL (0.2 - 1.0) 02/27/17 21:55 Ur Leukocyte Esterase NEGATIVE (NEGATIVE) 02/27/17 21:55 Urine RBC 0-2 /hpf (0-5) 02/27/17 21:55 Urine WBC 0-2 /hpf (0-5) 02/27/17 21:55 Ur Epithelial Cells FEW /lpf (FEW) 02/27/17 21:55 Urine Bacteria FEW /hpf (NONE SEEN) 02/27/17 21:55 Urine Opiates Screen NEGATIVE (NEGATIVE) 02/27/17 21:55 Urine Methadone Screen NEGATIVE (NEGATIVE) 02/27/17 21:55 Ur Barbiturates Screen NEGATIVE (NEGATIVE) 02/27/17 21:55 Ur Tricyclics Screen NEGATIVE (NEGATIVE) 02/27/17 21:55 Ur Phencyclidine Scrn NEGATIVE (NEGATIVE) 02/27/17 21:55 Amphetamines Screen NEGATIVE (NEGATIVE) 02/27/17 21:55 U Methamphetamines Scrn NEGATIVE (NEGATIVE) 02/27/17 21:55 U Benzodiazepines Scrn NEGATIVE (NEGATIVE) 02/27/17 21:55 [place] 0.23 MEQ/L (0.50-1.00) 02/28/17 20:33 U Cocaine Metab Screen NEGATIVE (NEGATIVE) 02/27/17 21:55 U Cannabinoids Screen NEGATIVE (NEGATIVE) 02/27/17 21:55 Ethyl Alcohol < 10 mg/dL (0-10) 02/27/17 20:32 RPR NONREACTIVE (NONREACTIVE) 02/27/17 20:32 - Physical Exam Vitals and I&O: Vital Signs Temp 97.6 F 03/03/17 14:00 Pulse 67 03/03/17 14:00 Resp 18 03/03/17 14:00 BP 124/65 03/03/17 14:00 Pulse Ox 98 03/03/17 14:00 Intake & Output 03/03/17 03/03/17 03/04/17 06:59 18:59 06:59 Intake Total 2520 Balance 2520 Intake: Oral 2520 Other: # Voids 4 # Bowel Movements 1 Active Medications: Current Medications Acetaminophen (Tylenol) 650 mg PO Q4HR PRN PRN Reason: Pain or Fever >101 Stop: 04/28/17 22:15 Aspirin (Ecotrin) 81 mg PO DAILY [facility] Stop: 04/29/17 08:59 Last Admin: 03/03/17 08:10 Dose: 81 mg Calcium Carbonate (Os-Magno) 500 mg PO DAILY [facility] Stop: 04/29/17 08:59 Last Admin: 03/03/17 08:11 Dose: 500 mg Fenofibrate (Tricor) 134 mg PO HS [facility] Stop: 04/29/17 20:59 Last Admin: 03/02/17 20:42 Dose: 134 mg Ferrous Sulfate (Iron) 325 mg PO DAILY [facility] Stop: 04/29/17 08:59 Last Admin: 03/03/17 08:11 Dose: 325 mg Glipizide (Glucotrol) 20 mg PO BIDAC [facility]PL[facility] Stop: 04/29/17 07:29 Last Admin: 03/03/17 16:38 Dose: Not Given Insulin Aspart (Novolog) 0 units SUBQ ACHS [facility] PRN Reason: Protocol Stop: 04/29/17 07:29 Last Admin: 03/03/17 20:18 Dose: Not Given [place] Carbonate (Eskalith) 450 mg PO HS [facility] Stop: 04/29/17 20:59 Last Admin: 03/02/17 20:42 Dose: 450 mg Lorazepam (Ativan) 2 mg PO Q6HR PRN PRN Reason: Agitation Magnesium Hydroxide (Milk Of Magnesia) 30 ml PO HS PRN PRN Reason: Constipation Stop: 04/28/17 22:13 Metformin HCl (Glucophage) 1,000 mg PO BID [facility] Stop: 04/29/17 08:59 Last Admin: 03/03/17 16:40 Dose: Not Given Multivitamins/Vitamin C (Theragran) 1 tab PO DAILY [facility] Stop: 04/29/17 08:59 Last Admin: 03/03/17 08:11 Dose: 1 tab Mupirocin (Bactroban Oint) 1 appl TP BID [facility] Stop: 03/06/17 16:59 Last Admin: 03/03/17 16:40 Dose: 1 appl Oxcarbazepine (Trileptal) 600 mg PO BID [facility] PRN Reason: Protocol Stop: 04/29/17 08:59 Last Admin: 03/03/17 16:32 Dose: 600 mg Risperidone (Risperdal) 1 mg PO BID [facility] PRN Reason: Protocol Stop: 04/29/17 08:59 Last Admin: 03/03/17 16:32 Dose: 1 mg Sitagliptin Phosphate (Januvia) 100 mg PO DAILY [facility] Stop: 04/29/17 08:59 Last Admin: 03/03/17 11:27 Dose: Not Given Sodium Chloride (Nacl Tab) 1 gm PO BID [facility] Stop: 04/29/17 08:59 Last Admin: 03/03/17 16:32 Dose: 1 gm General: demented HEENT: NC/AT, PERRLA Neck: Supple Lungs: CTAB, congested Cardiovascular: RRR, Normal S1, Normal S2 Abdomen: soft non-tender, thin, positive bowel sound Extremities: excoriation Neurological: no change Internal Medicine Assmt/Plan - Assessment Assessment: dm \anemia htn elevated chol low na gerd hyperglecemia - Plan Plan: ada diet low na diet cont on statin cont on ppi [place] rn Nutritional Asmnt/Malnutr-PDOC - Dietary Evaluation Malnutrition Findings (Please click <Entered> for more info): Nutritional Asmnt/Malnutrition Start: 03/01/17 15: 04 Text: Status: Complete Freq: Document 03/01/17 15:04 GSRYAN (Rec: 03/01/17 15:20 GSRYAN [email or web address]) Nutritional Asmnt/Malnutrition Patient General Information Nutritional Screening Consult Diagnosis Agitation Pertinent Medical Hx/Surgical Hx DM, HTN, hypercholesterolemia, GERD, thrombocytosis Subjective Information 67 year old female from SNF. RD consult for wounds, scar tissue. Pt is a poor historian , able to repeatedly ask for coffee, however kept going off topic and was unable to answer RD's questions. Pt appeared thin, mild wasting to chest and legs noted. Pt is edentulous, denied difficulties chewing. Avg PO intake 100% of meals, meeting nutritional needs. Current Diet Order/ Nutrition Support Regular Pertinent Medications Os-Magno, Iron, Glucotrol, Novolog, MOM, Glucophage, Theragran Pertinent Labs 02/27: glucose 178H. Nutritional Hx/Data Height 1.7 m Height (Calculated Centimeters) 170.2 Current Weight (lbs) 55.928 kg Weight (Calculated Kilograms) 55.9 Weight (Calculated Grams) 43854.9 [place] Body Weight 135 Weight Status Approriate GI Symptoms Food Allergies No Usual diet at home [place]: regular, EM[place], all vegetables cooked, thin liquids Skin Integrity/Comment: Prasanna 22. Current %PO Good (75-100%) Estimated Nutritional Goals Calories/Kcals/Kg IBW 135lb/61.4kg Kcals Calculated 1535-1842kcal (25-30kcal/kg) Protein g/kg: IBW Protein Calculated 61g (1g/kg) Fluid: ml 1535-1842ml (1ml/kcal) Nutritional Problem 1. Problem Problem Altered nutrition related laboratory values related to Etiology DM aeb Signs/Symptoms: H&P, elevated glucose levels, pt is on DM medications Intervention/Recommendation Comments 1. Recommend [id number] to promtoe glycemic control. Expected Outcomes/Goals Expected Outcomes/Goals 1. PO intake continue to meet at least 75% of estimated nutritional needs.
[2017-03-03] MEDS: Fenofibrate, Micronized 134 mg Cap PO SCH (20:37)
--- NOTE | 2017-03-04 00:21 | Progress Notes ---
TIME PATIENT SEEN: ____1:15 p.m. SUBJECTIVE: Staff was spoken to. The patient is interviewed. Mood is noted to be dysphoric. The patient has been disrobing and does not want to have any close. The patient is sitting naked on the bed. The patient needs to be redirected. The patient has no insight into her illness. Mood swings are still a problem. The patient, so far, has been compliant with the medications. ASSESSMENT: The patient is grossly psychotic and impulsive. PLAN: To continue the patient with the supportive therapy. I encouraged the patient to verbalize the concerns rather than to act out. JOB# [id number]
[2017-03-04] MEDS: INSULIN ASPART, RECOMBINANT 100 UNITS/ML SUBQ SCH ×4 (06:31→20:35)
[2017-03-04] MEDS: Multivitamin Tab PO SCH (08:32)
[2017-03-04] MEDS: Ferrous Sulfate 325 MG TAB PO SCH (08:32)
--- NOTE | 2017-03-04 20:26 | Internal Medicine Prog Note ---
Internal Medicine Subjective - Subjective Patient seen and examined:: with staff, chart reviewed Patient is:: awake, verbal, interactive Per staff patient is:: no adverse event, confused Internal Medicine Objective - Results Result Diagrams: 02/27/17 20:32 02/27/17 20:32 Recent Labs: Laboratory Last Values WBC 11.2 Th/cmm (4.8-10.8) H 02/27/17 20:32 RBC 4.87 Mil/cmm (3.80-5.20) 02/27/17 20:32 Hgb 13.3 gm/dL (11.7-16.1) 02/27/17 20:32 Hct 39.2 % (35.0-45.0) 02/27/17 20:32 MCV 80.5 fl (81-100) L 02/27/17 20:32 MCH 27.3 pg (27.0-31.0) 02/27/17 20: MCHC Differential 33.9 pg (28.0-36.0) 02/27/17 20:32 RDW 14.7 % (11.5-20.0) 02/27/17 20:32 Plt Count 551 Th/cmm (150-400) H 02/27/17 20:32 MPV 6.8 fl 02/27/17 20:32 Neutrophils % 74.0 % (40.0-80.0) 02/27/17 20:32 Lymphocytes % 15.6 % (20.0-50.0) L 02/27/17 20: Monocytes % 3.9 % (2.0-10.0) 02/27/17 20: Eosinophils % 5.7 % (0.0-5.0) H 02/27/17 20:32 Basophils % 0.8 % (0.0-2.0) 02/27/17 20:32 Sodium 127 mEq/L (136-145) L 02/27/17 20:32 Potassium 4.0 mEq/L (3.5-5.1) 02/27/17 20:32 Chloride 96 mEq/L (98-107) L 02/27/17 20:32 Carbon Dioxide 25.4 mEq/L (21.0-31.0) 02/27/17 20:32 Anion Gap 9.6 (7.0-16.0) 02/27/17 20:32 BUN 18 mg/dL (7-25) 02/27/17 20:32 Creatinine 0.7 mg/dL (0.6-1.2) 02/27/17 20:32 Est GFR ( Amer) > 60.0 ml/min (>90) 02/27/17 20:32 Est GFR (Non-Af Amer) > 60.0 ml/min 02/27/17 20:32 BUN/Creatinine Ratio 25.7 02/27/17 20:32 Glucose 178 mg/dL (70-105) H 02/27/17 20:32 POC Glucose 58 MG/DL (70 - 105) L 03/04/17 20:02 Calcium 10.5 mg/dL (8.6-10.3) H 02/27/17 20:32 Total Bilirubin 0.3 mg/dL (0.3-1.0) 02/27/17 20:32 AST 17 U/L (13-39) 02/27/17 20:32 ALT 18 U/L (7-52) 02/27/17 20:32 Alkaline Phosphatase 84 U/L (34-104) 02/27/17 20:32 Creatine Kinase 50 U/L (30-223) 02/27/17 20:32 CK-MB (CK-2) 1.3 ng/mL (0.6-6.3) 02/27/17 20:32 Troponin I 0.01 ng/mL (0.01-0.05) 02/27/17 20:32 Total Protein 7.8 gm/dL (6.0-8.3) 02/27/17 20:32 Albumin 4.6 gm/dL (3.7-5.3) 02/27/17 20:32 Globulin 3.2 gm/dL 02/27/17 20:32 Albumin/Globulin Ratio 1.4 (1.0-1.8) 02/27/17 20:32 Amylase 27 U/L (29-103) L 02/27/17 20:32 Lipase 46 U/L (11-82) 02/27/17 20:32 TSH 1.36 uIU/ml (0.34-5.60) 02/27/17 20:32 Urine Source CLEAN C 02/27/17 21:55 Urine Color YELLOW 02/27/17 21:55 Urine Clarity HAZY (CLEAR) 02/27/17 21:55 Urine pH 7.0 02/27/17 21:55 Ur Specific [place] 1.020 (1.005-1.030) 02/27/17 21:55 Urine Protein NEGATIVE mg/dL (NEGATIVE) 02/27/17 21:55 Urine Glucose (UA) NEGATIVE mg/dL (NEGATIVE) 02/27/17 21:55 Urine Ketones NEGATIVE mg/dL (NEGATIVE) 02/27/17 21:55 Urine Blood NEGATIVE (NEGATIVE) 02/27/17 21:55 Urine Nitrate NEGATIVE (NEGATIVE) 02/27/17 21:55 Urine Bilirubin NEGATIVE (NEGATIVE) 02/27/17 21:55 Urine Urobilinogen 0.2 E.U./dL (0.2 - 1.0) 02/27/17 21:55 Ur Leukocyte Esterase NEGATIVE (NEGATIVE) 02/27/17 21:55 Urine RBC 0-2 /hpf (0-5) 02/27/17 21:55 Urine WBC 0-2 /hpf (0-5) 02/27/17 21:55 Ur Epithelial Cells FEW /lpf (FEW) 02/27/17 21:55 Urine Bacteria FEW /hpf (NONE SEEN) 02/27/17 21:55 Urine Opiates Screen NEGATIVE (NEGATIVE) 02/27/17 21:55 Urine Methadone Screen NEGATIVE (NEGATIVE) 02/27/17 21:55 Ur Barbiturates Screen NEGATIVE (NEGATIVE) 02/27/17 21:55 Ur Tricyclics Screen NEGATIVE (NEGATIVE) 02/27/17 21:55 Ur Phencyclidine Scrn NEGATIVE (NEGATIVE) 02/27/17 21:55 Amphetamines Screen NEGATIVE (NEGATIVE) 02/27/17 21:55 U Methamphetamines Scrn NEGATIVE (NEGATIVE) 02/27/17 21:55 U Benzodiazepines Scrn NEGATIVE (NEGATIVE) 02/27/17 21:55 [place] 0.23 MEQ/L (0.50-1.00) 02/28/17 20:33 U Cocaine Metab Screen NEGATIVE (NEGATIVE) 02/27/17 21:55 U Cannabinoids Screen NEGATIVE (NEGATIVE) 02/27/17 21:55 Ethyl Alcohol < 10 mg/dL (0-10) 02/27/17 20:32 RPR NONREACTIVE (NONREACTIVE) 02/27/17 20:32 - Physical Exam Vitals and I&O: Vital Signs Temp 98.6 F 03/04/17 19:37 Pulse 68 03/04/17 19:37 Resp 19 03/04/17 19:37 BP 145/78 03/04/17 19:37 Pulse Ox 97 03/04/17 19:37 Intake & Output 03/04/17 03/04/17 03/05/17 06:59 18:59 06:59 Intake Total 950 240 Balance 950 240 Intake: Oral 950 240 Other: # Voids 4 1 # Bowel Movements 1 Active Medications: Current Medications Acetaminophen (Tylenol) 650 mg PO Q4HR PRN PRN Reason: Pain or Fever >101 Stop: 04/28/17 22:15 Aspirin (Ecotrin) 81 mg PO DAILY [facility] Stop: 04/29/17 08:59 Last Admin: 03/04/17 08:32 Dose: 81 mg Calcium Carbonate (Os-Magno) 500 mg PO DAILY RICK[facility] Stop: 04/29/17 08:59 Last Admin: 03/04/17 08:32 Dose: 500 mg Fenofibrate (Tricor) 134 mg PO HS [facility] Stop: 04/29/17 20:59 Last Admin: 03/03/17 20:37 Dose: Not Given Ferrous Sulfate (Iron) 325 mg PO DAILY [facility] Stop: 04/29/17 08:59 Last Admin: 03/04/17 08:32 Dose: 325 mg Glipizide (Glucotrol) 20 mg PO BIDAC [facility] Stop: 04/29/17 07:29 Last Admin: 03/04/17 17:02 Dose: 20 mg Insulin Aspart (Novolog) 0 units SUBQ ACHS RICKY PRN Reason: Protocol Stop: 04/29/17 07:29 Last Admin: 03/04/17 17:02 Dose: Not Given [place] Carbonate (Eskalith) 450 mg PO HS [facility] Stop: 04/29/17 20:59 Last Admin: 03/03/17 20:37 Dose: Not Given Lorazepam (Ativan) 2 mg PO Q6HR PRN PRN Reason: Agitation Magnesium Hydroxide (Milk Of Magnesia) 30 ml PO HS PRN PRN Reason: Constipation Stop: 04/28/17 22:13 Metformin HCl (Glucophage) 1,000 mg PO BID [facility] Stop: 04/29/17 08:59 Last Admin: 03/04/17 17:02 Dose: 1,000 mg Multivitamins/Vitamin C (Theragran) 1 tab PO DAILY [facility] Stop: 04/29/17 08:59 Last Admin: 03/04/17 08:32 Dose: 1 tab Mupirocin (Bactroban Oint) 1 appl TP BID [facility] Stop: 03/06/17 16:59 Last Admin: 03/04/17 17:05 Dose: 1 appl Oxcarbazepine (Trileptal) 600 mg PO BID RICKY PRN Reason: Protocol Stop: 04/29/17 08:59 Last Admin: 03/04/17 17:02 Dose: 600 mg Risperidone (Risperdal) 2 mg PO BID [facility]ICK[facility] PRN Reason: Protocol Stop: 04/29/17 08:59 Sitagliptin Phosphate (Januvia) 100 mg PO DAILY [facility] Stop: 04/29/17 08:59 Last Admin: 03/04/17 08:32 Dose: 100 mg Sodium Chloride (Nacl Tab) 1 gm PO BID [facility] Stop: 04/29/17 08:59 Last Admin: 03/04/17 17:02 Dose: 1 gm General: demented HEENT: NC/AT, PERRLA Neck: Supple, No JVD Lungs: CTAB Cardiovascular: RRR, Normal S1, Normal S2 Abdomen: soft non-tender, globular, positive bowel sound Extremities: excoriation, ulcers stage 2 Neurological: no change Internal Medicine Assmt/Plan - Assessment Assessment: dm \anemia htn elevated chol low na gerd hyperglecemia decub ulcer - Plan Plan: ada diet low na diet cont on statin cont on ppi bernadette rn Nutritional Asmnt/Malnutr-PDOC - Dietary Evaluation Malnutrition Findings (Please click <Entered> for more info): Nutritional Asmnt/Malnutrition Start: 03/01/17 15: 04 Text: Status: Complete Freq: Document 03/01/17 15:04 GSUN (Rec: 03/01/17 15:20 [email or web address] [email or web address]) Nutritional Asmnt/Malnutrition Patient General Information Nutritional Screening Consult Diagnosis Agitation Pertinent Medical Hx/Surgical Hx DM, HTN, hypercholesterolemia, GERD, thrombocytosis Subjective Information 67 year old female from SNF. RD consult for wounds, scar tissue. Pt is a poor historian , able to repeatedly ask for coffee, however kept going off topic and was unable to answer RD's questions. Pt appeared thin, mild wasting to chest and legs noted. Pt is edentulous, denied difficulties chewing. Avg PO intake 100% of meals, meeting nutritional needs. Current Diet Order/ Nutrition Support Regular Pertinent Medications Os-Magno, Iron, Glucotrol, Novolog, MOM, Glucophage, Theragran Pertinent Labs 02/27: glucose 178H. Nutritional Hx/Data Height 1.7 m Height (Calculated Centimeters) 170.2 Current Weight (lbs) 55.928 kg Weight (Calculated Kilograms) 55.9 Weight (Calculated Grams) 97505.9 [place] Body Weight 135 Weight Status Approriate GI Symptoms Food Allergies No Usual diet at home [place]: regular, EMMA, all vegetables cooked, thin liquids Skin Integrity/Comment: Prasanna 22. Current %PO Good (75-100%) Estimated Nutritional Goals Calories/Kcals/Kg IBW 135lb/61.4kg Kcals Calculated 1535-1842kcal (25-30kcal/kg) Protein g/kg: IBW Protein Calculated 61g (1g/kg) Fluid: ml 1535-1842ml (1ml/kcal) Nutritional Problem 1. Problem Problem Altered nutrition related laboratory values related to Etiology DM aeb Signs/Symptoms: H&P, elevated glucose levels, pt is on DM medications Intervention/Recommendation Comments 1. Recommend [address] to promtoe glycemic control. Expected Outcomes/Goals Expected Outcomes/Goals 1. PO intake continue to meet at least 75% of estimated nutritional needs.
[2017-03-04] MEDS: Fenofibrate, Micronized 134 mg Cap PO SCH (20:35)
--- NOTE | 2017-03-05 04:58 | Progress Notes ---
DATE: 03/04/2017 The patient is seen in inpatient unit. The patient continues with severe psychosis with bizarre behavior, disturbing, yelling, very delusional. She says she needs her [place] [place] and she is not going to believe until she gets it. She is angry at times and raising her voice. She is on trial medications ____ for mood stability, trial of lithium and Risperdal for psychotic features. She has no side effects including EPS and tardive dyskinesia. She is on conservatorship status. Plan is to titrate Risperdal to 2 mg b.i.d. to continue group therapy, individual therapy, and to check lithium level and titrate ____ therapeutic dose. JOB# [id number]
[2017-03-05] MEDS: INSULIN ASPART, RECOMBINANT 100 UNITS/ML SUBQ SCH ×4 (06:34→20:37)
[2017-03-05] MEDS: Multivitamin Tab PO SCH (12:41)
[2017-03-05] MEDS: Ferrous Sulfate 325 MG TAB PO SCH (12:41)
--- NOTE | 2017-03-05 13:11 | Internal Medicine Prog Note ---
Internal Medicine Subjective - Subjective Patient seen and examined:: with staff, chart reviewed Patient is:: verbal, interactive Per staff patient is:: no adverse event, poor appetite, confused Internal Medicine Objective - Results Result Diagrams: 02/27/17 20:32 02/27/17 20:32 Recent Labs: Laboratory Last Values WBC 11.2 Th/cmm (4.8-10.8) H 02/27/17 20:32 RBC 4.87 Mil/cmm (3.80-5.20) 02/27/17 20:32 Hgb 13.3 gm/dL (11.7-16.1) 02/27/17 20:32 Hct 39.2 % (35.0-45.0) 02/27/17 20:32 MCV 80.5 fl (81-100) L 02/27/17 20:32 MCH 27.3 pg (27.0-31.0) 02/27/17 20: MCHC Differential 33.9 pg (28.0-36.0) 02/27/17 20:32 RDW 14.7 % (11.5-20.0) 02/27/17 20:32 Plt Count 551 Th/cmm (150-400) H 02/27/17 20:32 MPV 6.8 fl 02/27/17 20:32 Neutrophils % 74.0 % (40.0-80.0) 02/27/17 20:32 Lymphocytes % 15.6 % (20.0-50.0) L 02/27/17 20: Monocytes % 3.9 % (2.0-10.0) 02/27/17 20: Eosinophils % 5.7 % (0.0-5.0) H 02/27/17 20: Basophils % 0.8 % (0.0-2.0) 02/27/17 20:32 Sodium 127 mEq/L (136-145) L 02/27/17 20:32 Potassium 4.0 mEq/L (3.5-5.1) 02/27/17 20:32 Chloride 96 mEq/L (98-107) L 02/27/17 20: Carbon Dioxide 25.4 mEq/L (21.0-31.0) 02/27/17 20:32 Anion Gap 9.6 (7.0-16.0) 02/27/17 20:32 BUN 18 mg/dL (7-25) 02/27/17 20:32 Creatinine 0.7 mg/dL (0.6-1.2) 02/27/17 20:32 Est GFR ( Amer) > 60.0 ml/min (>90) 02/27/17 20:32 Est GFR (Non-Af Amer) > 60.0 ml/min 02/27/17 20:32 BUN/Creatinine Ratio 25.7 02/27/17 20:32 Glucose 178 mg/dL (70-105) H 02/27/17 20:32 POC Glucose 148 MG/DL (70 - 105) H 03/05/17 06:41 Calcium 10.5 mg/dL (8.6-10.3) H 02/27/17 20:32 Total Bilirubin 0.3 mg/dL (0.3-1.0) 02/27/17 20:32 AST 17 U/L (13-39) 02/27/17 20:32 ALT 18 U/L (7-52) 02/27/17 20:32 Alkaline Phosphatase 84 U/L (34-104) 02/27/17 20:32 Creatine Kinase 50 U/L (30-223) 02/27/17 20:32 CK-MB (CK-2) 1.3 ng/mL (0.6-6.3) 02/27/17 20:32 Troponin I 0.01 ng/mL (0.01-0.05) 02/27/17 20:32 Total Protein 7.8 gm/dL (6.0-8.3) 02/27/17 20:32 Albumin 4.6 gm/dL (3.7-5.3) 02/27/17 20:32 Globulin 3.2 gm/dL 02/27/17 20:32 Albumin/Globulin Ratio 1.4 (1.0-1.8) 02/27/17 20:32 Amylase 27 U/L (29-103) L 02/27/17 20:32 Lipase 46 U/L (11-82) 02/27/17 20:32 TSH 1.36 uIU/ml (0.34-5.60) 02/27/17 20:32 Urine Source CLEAN C 02/27/17 21:55 Urine Color YELLOW 02/27/17 21:55 Urine Clarity HAZY (CLEAR) 02/27/17 21:55 Urine pH 7.0 02/27/17 21:55 Ur Specific [place] 1.020 (1.005-1.030) 02/27/17 21:55 Urine Protein NEGATIVE mg/dL (NEGATIVE) 02/27/17 21:55 Urine Glucose (UA) NEGATIVE mg/dL (NEGATIVE) 02/27/17 21:55 Urine Ketones NEGATIVE mg/dL (NEGATIVE) 02/27/17 21:55 Urine Blood NEGATIVE (NEGATIVE) 02/27/17 21:55 Urine Nitrate NEGATIVE (NEGATIVE) 02/27/17 21:55 Urine Bilirubin NEGATIVE (NEGATIVE) 02/27/17 21:55 Urine Urobilinogen 0.2 E.U./dL (0.2 - 1.0) 02/27/17 21:55 Ur Leukocyte Esterase NEGATIVE (NEGATIVE) 02/27/17 21:55 Urine RBC 0-2 /hpf (0-5) 02/27/17 21:55 Urine WBC 0-2 /hpf (0-5) 02/27/17 21:55 Ur Epithelial Cells FEW /lpf (FEW) 02/27/17 21:55 Urine Bacteria FEW /hpf (NONE SEEN) 02/27/17 21:55 Urine Opiates Screen NEGATIVE (NEGATIVE) 02/27/17 21:55 Urine Methadone Screen NEGATIVE (NEGATIVE) 02/27/17 21:55 Ur Barbiturates Screen NEGATIVE (NEGATIVE) 02/27/17 21:55 Ur Tricyclics Screen NEGATIVE (NEGATIVE) 02/27/17 21:55 Ur Phencyclidine Scrn NEGATIVE (NEGATIVE) 02/27/17 21:55 Amphetamines Screen NEGATIVE (NEGATIVE) 02/27/17 21:55 U Methamphetamines Scrn NEGATIVE (NEGATIVE) 02/27/17 21:55 U Benzodiazepines Scrn NEGATIVE (NEGATIVE) 02/27/17 21:55 [place] 0.23 MEQ/L (0.50-1.00) 02/28/17 20:33 U Cocaine Metab Screen NEGATIVE (NEGATIVE) 02/27/17 21:55 U Cannabinoids Screen NEGATIVE (NEGATIVE) 02/27/17 21:55 Ethyl Alcohol < 10 mg/dL (0-10) 02/27/17 20:32 RPR NONREACTIVE (NONREACTIVE) 02/27/17 20:32 - Physical Exam Vitals and I&O: Vital Signs Temp 98.2 F 03/05/17 06:21 Pulse 57 03/05/17 06:21 Resp 20 03/05/17 06:21 BP 140/84 03/05/17 06:21 Pulse Ox 100 03/05/17 06:21 Intake & Output 03/04/17 03/05/17 03/05/17 18:59 06:59 18:59 Intake Total 950 240 Balance 950 240 Intake: Oral 950 240 Other: # Voids 4 1 # Bowel Movements 1 0 Active Medications: Current Medications Acetaminophen (Tylenol) 650 mg PO Q4HR PRN PRN Reason: Pain or Fever >101 Stop: 04/28/17 22:15 Aspirin (Ecotrin) 81 mg PO DAILY [facility] Stop: 04/29/17 08:59 Last Admin: 03/05/17 12:41 Dose: Not Given Calcium Carbonate (Os-Magno) 500 mg PO DAILY [facility] Stop: 04/29/17 08:59 Last Admin: 03/05/17 12:41 Dose: Not Given Fenofibrate (Tricor) 134 mg PO HS [facility] Stop: 04/29/17 20:59 Last Admin: 03/04/17 20:35 Dose: 134 mg Ferrous Sulfate (Iron) 325 mg PO DAILY [facility] Stop: 04/29/17 08:59 Last Admin: 03/05/17 12:41 Dose: Not Given Glipizide (Glucotrol) 20 mg PO BIDAC [facility] Stop: 04/29/17 07:29 Last Admin: 03/05/17 06:34 Dose: Not Given Insulin Aspart (Novolog) 0 units SUBQ ACHS [facility] PRN Reason: Protocol Stop: 04/29/17 07:29 Last Admin: 03/05/17 12:43 Dose: Not Given [place] Carbonate (Eskalith) 450 mg PO HS [facility] Stop: 04/29/17 20:59 Last Admin: 03/04/17 20:34 Dose: 450 mg Lorazepam (Ativan) 2 mg PO Q6HR PRN PRN Reason: Agitation Magnesium Hydroxide (Milk Of Magnesia) 30 ml PO HS PRN PRN Reason: Constipation Stop: 04/28/17 22:13 Metformin HCl (Glucophage) 1,000 mg PO BID [facility] Stop: 04/29/17 08:59 Last Admin: 03/05/17 12:41 Dose: Not Given Multivitamins/Vitamin C (Theragran) 1 tab PO DAILY [facility] Stop: 04/29/17 08:59 Last Admin: 03/05/17 12:41 Dose: Not Given Mupirocin (Bactroban Oint) 1 appl TP BID [facility] Stop: 03/06/17 16:59 Last Admin: 03/05/17 12:41 Dose: Not Given Oxcarbazepine (Trileptal) 600 mg PO BID [facility] PRN Reason: Protocol Stop: 04/29/17 08:59 Last Admin: 03/05/17 12:42 Dose: Not Given Risperidone (Risperdal) 2 mg PO BID [facility] PRN Reason: Protocol Stop: 04/29/17 08:59 Last Admin: 03/05/17 12:42 Dose: Not Given Sitagliptin Phosphate (Januvia) 100 mg PO DAILY [facility] Stop: 04/29/17 08:59 Last Admin: 03/05/17 12:42 Dose: Not Given Sodium Chloride (Nacl Tab) 1 gm PO BID [facility] Stop: 04/29/17 08:59 Last Admin: 03/05/17 12:42 Dose: Not Given General: demented HEENT: NC/AT, PERRLA Neck: Supple, No JVD Lungs: CTAB Cardiovascular: RRR, Normal S1, Normal S2 Abdomen: soft non-tender, globular, positive bowel sound Extremities: excoriation Neurological: no change, unable to follow command Internal Medicine Assmt/Plan - Assessment Assessment: dm \anemia htn elevated chol low na gerd hyperglecemia decub ulcer - Plan Plan: ada diet low na diet cont on statin cont on ppi dw rn Nutritional Asmnt/Malnutr-PDOC - Dietary Evaluation Malnutrition Findings (Please click <Entered> for more info): Nutritional Asmnt/Malnutrition Start: 03/01/17 15: 04 Text: Status: Complete Freq: Document 03/01/17 15:04 GSUN (Rec: 03/01/17 15:20 [email or web address]) Nutritional Asmnt/Malnutrition Patient General Information Nutritional Screening Consult Diagnosis Agitation Pertinent Medical Hx/Surgical Hx DM, HTN, hypercholesterolemia, GERD, thrombocytosis Subjective Information 67 year old female from SNF. RD consult for wounds, scar tissue. Pt is a poor historian , able to repeatedly ask for coffee, however kept going off topic and was unable to answer RD's questions. Pt appeared thin, mild wasting to chest and legs noted. Pt is edentulous, denied difficulties chewing. Avg PO intake 100% of meals, meeting nutritional needs. Current Diet Order/ Nutrition Support Regular Pertinent Medications Os-Magno, Iron, Glucotrol, Novolog, MOM, Glucophage, Theragran Pertinent Labs 02/27: glucose 178H. Nutritional Hx/Data Height 1.7 m Height (Calculated Centimeters) 170.2 Current Weight (lbs) 55.928 kg Weight (Calculated Kilograms) 55.9 Weight (Calculated Grams) 46056.9 [place] Body Weight 135 Weight Status Approriate GI Symptoms Food Allergies No Usual diet at home [place]: regular, EMMA, all vegetables cooked, thin liquids Skin Integrity/Comment: Prasanna 22. Current %PO Good (75-100%) Estimated Nutritional Goals Calories/Kcals/Kg IBW 135lb/61.4kg Kcals Calculated 1535-1842kcal (25-30kcal/kg) Protein g/kg: IBW Protein Calculated 61g (1g/kg) Fluid: ml 1535-1842ml (1ml/kcal) Nutritional Problem 1. Problem Problem Altered nutrition related laboratory values related to Etiology DM aeb Signs/Symptoms: H&P, elevated glucose levels, pt is on DM medications Intervention/Recommendation Comments 1. Recommend [id number] to promtoe glycemic control. Expected Outcomes/Goals Expected Outcomes/Goals 1. PO intake continue to meet at least 75% of estimated nutritional needs.
[2017-03-05] MEDS: Fenofibrate, Micronized 134 mg Cap PO SCH (20:36)
--- NOTE | 2017-03-05 23:33 | Progress Notes ---
DATE: 03/05/2017 SUBJECTIVE: The patient was seen, discussed with staff, chart is reviewed. Covering for Dr. Drummond. The patient is still confused, disorganized, walking around naked, yelling and screaming, said she cannot talk. The patient is internally preoccupied, her insight is poor, judgment remains impaired. ASSESSMENT: The patient is still in psychotic phase. PLAN: Continue hospitalization, monitor closely. Continue supportive measures. Continue medication management. JOB# [id number]
[2017-03-06] MEDS: INSULIN ASPART, RECOMBINANT 100 UNITS/ML SUBQ SCH ×4 (06:34→21:11)
[2017-03-06] MEDS: Multivitamin Tab PO SCH (09:57)
[2017-03-06] MEDS: Ferrous Sulfate 325 MG TAB PO SCH (10:00)
--- NOTE | 2017-03-06 15:28 | Internal Medicine Prog Note ---
Internal Medicine Subjective - Subjective Patient seen and examined:: with staff, chart reviewed Patient is:: awake, verbal, interactive Per staff patient is:: no adverse event, confused Internal Medicine Objective - Results Result Diagrams: 02/27/17 20:32 02/27/17 20:32 Recent Labs: Laboratory Last Values WBC 11.2 Th/cmm (4.8-10.8) H 02/27/17 20:32 RBC 4.87 Mil/cmm (3.80-5.20) 02/27/17 20:32 Hgb 13.3 gm/dL (11.7-16.1) 02/27/17 20:32 Hct 39.2 % (35.0-45.0) 02/27/17 20:32 MCV 80.5 fl (81-100) L 02/27/17 20:32 MCH 27.3 pg (27.0-31.0) 02/27/17 20: MCHC Differential 33.9 pg (28.0-36.0) 02/27/17 20:32 RDW 14.7 % (11.5-20.0) 02/27/17 20:32 Plt Count 551 Th/cmm (150-400) H 02/27/17 20:32 MPV 6.8 fl 02/27/17 20:32 Neutrophils % 74.0 % (40.0-80.0) 02/27/17 20:32 Lymphocytes % 15.6 % (20.0-50.0) L 02/27/17 20: Monocytes % 3.9 % (2.0-10.0) 02/27/17 20: Eosinophils % 5.7 % (0.0-5.0) H 02/27/17 20:32 Basophils % 0.8 % (0.0-2.0) 02/27/17 20:32 Sodium 127 mEq/L (136-145) L 02/27/17 20:32 Potassium 4.0 mEq/L (3.5-5.1) 02/27/17 20:32 Chloride 96 mEq/L (98-107) L 02/27/17 20:32 Carbon Dioxide 25.4 mEq/L (21.0-31.0) 02/27/17 20:32 Anion Gap 9.6 (7.0-16.0) 02/27/17 20:32 BUN 18 mg/dL (7-25) 02/27/17 20:32 Creatinine 0.7 mg/dL (0.6-1.2) 02/27/17 20:32 Est GFR ( Amer) > 60.0 ml/min (>90) 02/27/17 20:32 Est GFR (Non-Af Amer) > 60.0 ml/min 02/27/17 20:32 BUN/Creatinine Ratio 25.7 02/27/17 20:32 Glucose 178 mg/dL (70-105) H 02/27/17 20:32 POC Glucose 141 MG/DL (70 - 105) H 03/06/17 06:15 Calcium 10.5 mg/dL (8.6-10.3) H 02/27/17 20:32 Total Bilirubin 0.3 mg/dL (0.3-1.0) 02/27/17 20:32 AST 17 U/L (13-39) 02/27/17 20:32 ALT 18 U/L (7-52) 02/27/17 20:32 Alkaline Phosphatase 84 U/L (34-104) 02/27/17 20:32 Creatine Kinase 50 U/L (30-223) 02/27/17 20:32 CK-MB (CK-2) 1.3 ng/mL (0.6-6.3) 02/27/17 20:32 Troponin I 0.01 ng/mL (0.01-0.05) 02/27/17 20:32 Total Protein 7.8 gm/dL (6.0-8.3) 02/27/17 20:32 Albumin 4.6 gm/dL (3.7-5.3) 02/27/17 20:32 Globulin 3.2 gm/dL 02/27/17 20:32 Albumin/Globulin Ratio 1.4 (1.0-1.8) 02/27/17 20:32 Amylase 27 U/L (29-103) L 02/27/17 20:32 Lipase 46 U/L (11-82) 02/27/17 20:32 TSH 1.36 uIU/ml (0.34-5.60) 02/27/17 20:32 Urine Source CLEAN C 02/27/17 21:55 Urine Color YELLOW 02/27/17 21:55 Urine Clarity HAZY (CLEAR) 02/27/17 21:55 Urine pH 7.0 02/27/17 21:55 Ur Specific [place] 1.020 (1.005-1.030) 02/27/17 21:55 Urine Protein NEGATIVE mg/dL (NEGATIVE) 02/27/17 21:55 Urine Glucose (UA) NEGATIVE mg/dL (NEGATIVE) 02/27/17 21:55 Urine Ketones NEGATIVE mg/dL (NEGATIVE) 02/27/17 21:55 Urine Blood NEGATIVE (NEGATIVE) 02/27/17 21:55 Urine Nitrate NEGATIVE (NEGATIVE) 02/27/17 21:55 Urine Bilirubin NEGATIVE (NEGATIVE) 02/27/17 21:55 Urine Urobilinogen 0.2 E.U./dL (0.2 - 1.0) 02/27/17 21:55 Ur Leukocyte Esterase NEGATIVE (NEGATIVE) 02/27/17 21:55 Urine RBC 0-2 /hpf (0-5) 02/27/17 21:55 Urine WBC 0-2 /hpf (0-5) 02/27/17 21:55 Ur Epithelial Cells FEW /lpf (FEW) 02/27/17 21:55 Urine Bacteria FEW /hpf (NONE SEEN) 02/27/17 21:55 Urine Opiates Screen NEGATIVE (NEGATIVE) 02/27/17 21:55 Urine Methadone Screen NEGATIVE (NEGATIVE) 02/27/17 21:55 Ur Barbiturates Screen NEGATIVE (NEGATIVE) 02/27/17 21:55 Ur Tricyclics Screen NEGATIVE (NEGATIVE) 02/27/17 21:55 Ur Phencyclidine Scrn NEGATIVE (NEGATIVE) 02/27/17 21:55 Amphetamines Screen NEGATIVE (NEGATIVE) 02/27/17 21:55 U Methamphetamines Scrn NEGATIVE (NEGATIVE) 02/27/17 21:55 U Benzodiazepines Scrn NEGATIVE (NEGATIVE) 02/27/17 21:55 [place] 0.35 MEQ/L (0.50-1.00) 03/05/17 07:25 U Cocaine Metab Screen NEGATIVE (NEGATIVE) 02/27/17 21:55 U Cannabinoids Screen NEGATIVE (NEGATIVE) 02/27/17 21:55 Ethyl Alcohol < 10 mg/dL (0-10) 02/27/17 20:32 RPR NONREACTIVE (NONREACTIVE) 02/27/17 20:32 - Physical Exam Vitals and I&O: Vital Signs Temp 97.8 F 03/06/17 14:00 Pulse 65 03/06/17 14:00 Resp 18 03/06/17 14:00 BP 155/79 03/06/17 14:00 Pulse Ox 96 03/06/17 14:00 Intake & Output 03/05/17 03/06/17 03/06/17 18:59 06:59 18:59 Intake Total 950 240 Balance 950 240 Intake: Oral 950 240 Other: # Voids 4 3 # Bowel Movements 1 0 Active Medications: Current Medications Acetaminophen (Tylenol) 650 mg PO Q4HR PRN PRN Reason: Pain or Fever >101 Stop: 04/28/17 22:15 Aspirin (Ecotrin) 81 mg PO DAILY [facility] Stop: 04/29/17 08:59 Last Admin: 03/06/17 09:56 Dose: 81 mg Calcium Carbonate (Os-Magno) 500 mg PO DAILY [facility] Stop: 04/29/17 08:59 Last Admin: 03/06/17 10:00 Dose: 500 mg Fenofibrate (Tricor) 134 mg PO HS [facility] Stop: 04/29/17 20:59 Last Admin: 03/05/17 20:36 Dose: 134 mg Ferrous Sulfate (Iron) 325 mg PO DAILY [facility] Stop: 04/29/17 08:59 Last Admin: 03/06/17 10:00 Dose: 325 mg Glipizide (Glucotrol) 20 mg PO BIDAC [facility] Stop: 04/29/17 07:29 Last Admin: 03/06/17 06:34 Dose: Not Given Insulin Aspart (Novolog) 0 units SUBQ ACHS [facility] PRN Reason: Protocol Stop: 04/29/17 07:29 Last Admin: 03/06/17 06:34 Dose: Not Given [place] Carbonate (Eskalith) 450 mg PO HS [facility] Stop: 04/29/17 20:59 Last Admin: 03/05/17 20:36 Dose: 450 mg Lorazepam (Ativan) 2 mg PO Q6HR PRN PRN Reason: Agitation Magnesium Hydroxide (Milk Of Magnesia) 30 ml PO HS PRN PRN Reason: Constipation Stop: 04/28/17 22:13 Metformin HCl (Glucophage) 1,000 mg PO BID [facility] Stop: 04/29/17 08:59 Last Admin: 03/06/17 09:57 Dose: 1,000 mg Multivitamins/Vitamin C (Theragran) 1 tab PO DAILY [facility] Stop: 04/29/17 08:59 Last Admin: 03/06/17 09:57 Dose: 1 tab Mupirocin (Bactroban Oint) 1 appl TP BID [facility] Stop: 03/06/17 16:59 Last Admin: 03/05/17 17:59 Dose: Not Given Oxcarbazepine (Trileptal) 600 mg PO BID [facility] PRN Reason: Protocol Stop: 04/29/17 08:59 Last Admin: 03/06/17 09:57 Dose: 600 mg Risperidone (Risperdal) 2 mg PO BID [facility] PRN Reason: Protocol Stop: 04/29/17 08:59 Last Admin: 03/06/17 09:59 Dose: 2 mg Sitagliptin Phosphate (Januvia) 100 mg PO DAILY [facility] Stop: 04/29/17 08:59 Last Admin: 03/06/17 09:59 Dose: 100 mg Sodium Chloride (Nacl Tab) 1 gm PO BID [facility] Stop: 04/29/17 08:59 Last Admin: 03/06/17 09:57 Dose: 1 gm General: demented HEENT: NC/AT, PERRLA Neck: Supple Lungs: CTAB Cardiovascular: RRR, Normal S1, Normal S2 Abdomen: soft non-tender, positive bowel sound Neurological: disorganized Internal Medicine Assmt/Plan - Assessment Assessment: dm \anemia htn elevated chol low na gerd hyperglecemia decub ulcer - Plan Plan: ada diet low na diet cont on statin cont on ppi dw rn Nutritional Asmnt/Malnutr-PDOC - Dietary Evaluation Malnutrition Findings (Please click <Entered> for more info): Nutritional Asmnt/Malnutrition Start: 03/01/17 15: 04 Text: Status: Complete Freq: Document 03/01/17 15:04 GSUN (Rec: 03/01/17 15:20 [email or web address]) Nutritional Asmnt/Malnutrition Patient General Information Nutritional Screening Consult Diagnosis Agitation Pertinent Medical Hx/Surgical Hx DM, HTN, hypercholesterolemia, GERD, thrombocytosis Subjective Information 67 year old female from SNF. RD consult for wounds, scar tissue. Pt is a poor historian , able to repeatedly ask for coffee, however kept going off topic and was unable to answer RD's questions. Pt appeared thin, mild wasting to chest and legs noted. Pt is edentulous, denied difficulties chewing. Avg PO intake 100% of meals, meeting nutritional needs. Current Diet Order/ Nutrition Support Regular Pertinent Medications Os-Magno, Iron, Glucotrol, Novolog, MOM, Glucophage, Theragran Pertinent Labs 02/27: glucose 178H. Nutritional Hx/Data Height 1.7 m Height (Calculated Centimeters) 170.2 Current Weight (lbs) 55.928 kg Weight (Calculated Kilograms) 55.9 Weight (Calculated Grams) 18924.9 [place] Body Weight 135 Weight Status Approriate GI Symptoms Food Allergies No Usual diet at home [place]: regular, EMMA, all vegetables cooked, thin liquids Skin Integrity/Comment: Prasanna 22. Current %PO Good (75-100%) Estimated Nutritional Goals Calories/Kcals/Kg IBW 135lb/61.4kg Kcals Calculated 1535-1842kcal (25-30kcal/kg) Protein g/kg: IBW Protein Calculated 61g (1g/kg) Fluid: ml 1535-1842ml (1ml/kcal) Nutritional Problem 1. Problem Problem Altered nutrition related laboratory values related to Etiology DM aeb Signs/Symptoms: H&P, elevated glucose levels, pt is on DM medications Intervention/Recommendation Comments 1. Recommend [address] to promtoe glycemic control. Expected Outcomes/Goals Expected Outcomes/Goals 1. PO intake continue to meet at least 75% of estimated nutritional needs.
[2017-03-06] MEDS: Fenofibrate, Micronized 134 mg Cap PO SCH (20:40)
[2017-03-07] MEDS: INSULIN ASPART, RECOMBINANT 100 UNITS/ML SUBQ SCH ×4 (06:48→21:33)
[2017-03-07] MEDS: Ferrous Sulfate 325 MG TAB PO SCH (10:59)
[2017-03-07] MEDS: Multivitamin Tab PO SCH (10:59)
--- NOTE | 2017-03-07 13:53 | Internal Medicine Prog Note ---
Internal Medicine Subjective - Subjective Patient seen and examined:: with staff, chart reviewed Patient is:: awake, verbal, interactive Per staff patient is:: no adverse event, no episodes of fall, poor appetite Internal Medicine Objective - Results Result Diagrams: 02/27/17 20:32 02/27/17 20:32 Recent Labs: Laboratory Last Values WBC 11.2 Th/cmm (4.8-10.8) H 02/27/17 20:32 RBC 4.87 Mil/cmm (3.80-5.20) 02/27/17 20:32 Hgb 13.3 gm/dL (11.7-16.1) 02/27/17 20:32 Hct 39.2 % (35.0-45.0) 02/27/17 20:32 MCV 80.5 fl (81-100) L 02/27/17 20:32 MCH 27.3 pg (27.0-31.0) 02/27/17 20:32 MCHC Differential 33.9 pg (28.0-36.0) 02/27/17 20:32 RDW 14.7 % (11.5-20.0) 02/27/17 20:32 Plt Count 551 Th/cmm (150-400) H 02/27/17 20:32 MPV 6.8 fl 02/27/17 20:32 Neutrophils % 74.0 % (40.0-80.0) 02/27/17 20:32 Lymphocytes % 15.6 % (20.0-50.0) L 02/27/17 20:32 Monocytes % 3.9 % (2.0-10.0) 02/27/17 20:32 Eosinophils % 5.7 % (0.0-5.0) H 02/27/17 20:32 Basophils % 0.8 % (0.0-2.0) 02/27/17 20:32 Sodium 127 mEq/L (136-145) L 02/27/17 20:32 Potassium 4.0 mEq/L (3.5-5.1) 02/27/17 20:32 Chloride 96 mEq/L (98-107) L 02/27/17 20:32 Carbon Dioxide 25.4 mEq/L (21.0-31.0) 02/27/17 20:32 Anion Gap 9.6 (7.0-16.0) 02/27/17 20:32 BUN 18 mg/dL (7-25) 02/27/17 20:32 Creatinine 0.7 mg/dL (0.6-1.2) 02/27/17 20:32 Est GFR ( Amer) > 60.0 ml/min (>90) 02/27/17 20:32 Est GFR (Non-Af Amer) > 60.0 ml/min 02/27/17 20:32 BUN/Creatinine Ratio 25.7 02/27/17 20:32 Glucose 178 mg/dL (70-105) H 02/27/17 20:32 POC Glucose 250 MG/DL (70 - 105) H 03/07/17 11:40 Calcium 10.5 mg/dL (8.6-10.3) H 02/27/17 20:32 Total Bilirubin 0.3 mg/dL (0.3-1.0) 02/27/17 20:32 AST 17 U/L (13-39) 02/27/17 20:32 ALT 18 U/L (7-52) 02/27/17 20:32 Alkaline Phosphatase 84 U/L (34-104) 02/27/17 20:32 Creatine Kinase 50 U/L (30-223) 02/27/17 20:32 CK-MB (CK-2) 1.3 ng/mL (0.6-6.3) 02/27/17 20:32 Troponin I 0.01 ng/mL (0.01-0.05) 02/27/17 20:32 Total Protein 7.8 gm/dL (6.0-8.3) 02/27/17 20:32 Albumin 4.6 gm/dL (3.7-5.3) 02/27/17 20:32 Globulin 3.2 gm/dL 02/27/17 20:32 Albumin/Globulin Ratio 1.4 (1.0-1.8) 02/27/17 20:32 Amylase 27 U/L (29-103) L 02/27/17 20:32 Lipase 46 U/L (11-82) 02/27/17 20:32 TSH 1.36 uIU/ml (0.34-5.60) 02/27/17 20:32 Urine Source CLEAN C 02/27/17 21:55 Urine Color YELLOW 02/27/17 21:55 Urine Clarity HAZY (CLEAR) 02/27/17 21:55 Urine pH 7.0 02/27/17 21:55 Ur Specific [place] 1.020 (1.005-1.030) 02/27/17 21:55 Urine Protein NEGATIVE mg/dL (NEGATIVE) 02/27/17 21:55 Urine Glucose (UA) NEGATIVE mg/dL (NEGATIVE) 02/27/17 21:55 Urine Ketones NEGATIVE mg/dL (NEGATIVE) 02/27/17 21:55 Urine Blood NEGATIVE (NEGATIVE) 02/27/17 21:55 Urine Nitrate NEGATIVE (NEGATIVE) 02/27/17 21:55 Urine Bilirubin NEGATIVE (NEGATIVE) 02/27/17 21:55 Urine Urobilinogen 0.2 E.U./dL (0.2 - 1.0) 02/27/17 21:55 Ur Leukocyte Esterase NEGATIVE (NEGATIVE) 02/27/17 21:55 Urine RBC 0-2 /hpf (0-5) 02/27/17 21:55 Urine WBC 0-2 /hpf (0-5) 02/27/17 21:55 Ur Epithelial Cells FEW /lpf (FEW) 02/27/17 21:55 Urine Bacteria FEW /hpf (NONE SEEN) 02/27/17 21:55 Urine Opiates Screen NEGATIVE (NEGATIVE) 02/27/17 21:55 Urine Methadone Screen NEGATIVE (NEGATIVE) 02/27/17 21:55 Ur Barbiturates Screen NEGATIVE (NEGATIVE) 02/27/17 21:55 Ur Tricyclics Screen NEGATIVE (NEGATIVE) 02/27/17 21:55 Ur Phencyclidine Scrn NEGATIVE (NEGATIVE) 02/27/17 21:55 Amphetamines Screen NEGATIVE (NEGATIVE) 02/27/17 21:55 U Methamphetamines Scrn NEGATIVE (NEGATIVE) 02/27/17 21:55 U Benzodiazepines Scrn NEGATIVE (NEGATIVE) 02/27/17 21:55 [place] 0.35 MEQ/L (0.50-1.00) 03/05/17 07:25 U Cocaine Metab Screen NEGATIVE (NEGATIVE) 02/27/17 21:55 U Cannabinoids Screen NEGATIVE (NEGATIVE) 02/27/17 21:55 Ethyl Alcohol < 10 mg/dL (0-10) 02/27/17 20:32 RPR NONREACTIVE (NONREACTIVE) 02/27/17 20:32 - Physical Exam Vitals and I&O: Vital Signs Temp 97.8 F 03/06/17 14:00 Pulse 65 03/06/17 14:00 Resp 18 03/06/17 14:00 BP 155/79 03/06/17 14:00 Pulse Ox 96 03/06/17 14:00 Intake & Output 03/06/17 03/07/17 03/07/17 18:59 06:59 18:59 Intake Total 1200 Balance 1200 Intake: Oral 1200 Other: # Bowel Movements 1 Stool Characteristics Formed Active Medications: Current Medications Acetaminophen (Tylenol) 650 mg PO Q4HR PRN PRN Reason: Pain or Fever >101 Stop: 04/28/17 22:15 Aspirin (Ecotrin) 81 mg PO DAILY [facility] Stop: 04/29/17 08:59 Last Admin: 03/07/17 10:58 Dose: Not Given Calcium Carbonate (Os-Magno) 500 mg PO DAILY [facility] Stop: 04/29/17 08:59 Last Admin: 03/07/17 10:58 Dose: Not Given Fenofibrate (Tricor) 134 mg PO HS [facility] Stop: 04/29/17 20:59 Last Admin: 03/06/17 20:40 Dose: 134 mg Ferrous Sulfate (Iron) 325 mg PO DAILY [facility] Stop: 04/29/17 08:59 Last Admin: 03/07/17 10:59 Dose: Not Given Glipizide (Glucotrol) 20 mg PO BIDAC [facility] Stop: 04/29/17 07:29 Last Admin: 03/07/17 06:47 Dose: Not Given Insulin Aspart (Novolog) 0 units SUBQ ACHS [facility] PRN Reason: Protocol Stop: 04/29/17 07:29 Last Admin: 03/07/17 06:48 Dose: Not Given [place] Carbonate (Eskalith) 450 mg PO HS [facility] Stop: 04/29/17 20:59 Last Admin: 03/06/17 20:40 Dose: 450 mg Lorazepam (Ativan) 2 mg PO Q6HR PRN PRN Reason: Agitation Magnesium Hydroxide (Milk Of Magnesia) 30 ml PO HS PRN PRN Reason: Constipation Stop: 04/28/17 22:13 Metformin HCl (Glucophage) 1,000 mg PO BID [facility] Stop: 04/29/17 08:59 Last Admin: 03/07/17 10:59 Dose: Not Given Multivitamins/Vitamin C (Theragran) 1 tab PO DAILY [facility] Stop: 04/29/17 08:59 Last Admin: 03/07/17 10:59 Dose: Not Given Oxcarbazepine (Trileptal) 600 mg PO BID [facility] PRN Reason: Protocol Stop: 04/29/17 08:59 Last Admin: 03/07/17 10:59 Dose: Not Given Risperidone (Risperdal) 2 mg PO BID [facility] PRN Reason: Protocol Stop: 04/29/17 08:59 Last Admin: 03/07/17 10:59 Dose: Not Given Sitagliptin Phosphate (Januvia) 100 mg PO DAILY [facility] Stop: 04/29/17 08:59 Last Admin: 03/07/17 10:59 Dose: Not Given Sodium Chloride (Nacl Tab) 1 gm PO BID [facility] Stop: 04/29/17 08:59 Last Admin: 03/07/17 11:04 Dose: Not Given General: demented HEENT: NC/AT, PERRLA Neck: Supple, No JVD Lungs: CTAB Cardiovascular: RRR, Normal S1, Normal S2 Abdomen: soft non-tender, globular, positive bowel sound Extremities: excoriation Neurological: no change Internal Medicine Assmt/Plan - Assessment Assessment: dm \anemia htn elevated chol low na gerd hyperglecemia decub ulcer - Plan Plan: ada diet low na diet cont on statin cont on ppi dw rn Nutritional Asmnt/Malnutr-PDOC - Dietary Evaluation Malnutrition Findings (Please click <Entered> for more info): Nutritional Asmnt/Malnutrition Start: 03/01/17 15: 04 Text: Status: Complete Freq: Document 03/01/17 15:04 GSUN (Rec: 03/01/17 15:20 [email or web address]) Nutritional Asmnt/Malnutrition Patient General Information Nutritional Screening Consult Diagnosis Agitation Pertinent Medical Hx/Surgical Hx DM, HTN, hypercholesterolemia, GERD, thrombocytosis Subjective Information 67 year old female from SNF. RD consult for wounds, scar tissue. Pt is a poor historian , able to repeatedly ask for coffee, however kept going off topic and was unable to answer RD's questions. Pt appeared thin, mild wasting to chest and legs noted. Pt is edentulous, denied difficulties chewing. Avg PO intake 100% of meals, meeting nutritional needs. Current Diet Order/ Nutrition Support Regular Pertinent Medications Os-Magno, Iron, Glucotrol, Novolog, MOM, Glucophage, Theragran Pertinent Labs /: glucose 178H. Nutritional Hx/Data Height 1.7 m Height (Calculated Centimeters) 170.2 Current Weight (lbs) 55.928 kg Weight (Calculated Kilograms) 55.9 Weight (Calculated Grams) 70243.9 [place] Body Weight 135 Weight Status Approriate GI Symptoms Food Allergies No Usual diet at home [place] : regular, EMMA, all vegetables cooked, thin liquids Skin Integrity/Comment: [place] 22. Current %PO Good (75-100%) Estimated Nutritional Goals Calories/Kcals/Kg IBW 135lb/61.4kg Kcals Calculated 1535-1842kcal (25-30kcal/kg) Protein g/kg: IBW Protein Calculated 61g (1g/kg) Fluid: ml 1535-1842ml (1ml/kcal) Nutritional Problem 1. Problem Problem Altered nutrition related laboratory values related to Etiology DM aeb Signs/Symptoms: H&P, elevated glucose levels, pt is on DM medications Intervention/Recommendation Comments 1. Recommend [address] to promtoe glycemic control. Expected Outcomes/Goals Expected Outcomes/Goals 1. PO intake continue to meet at least 75% of estimated nutritional needs.
--- NOTE | 2017-03-07 17:43 | Progress Notes ---
DATE: 03/06/2017 The patient is seen, chart reviewed, and case discussed with staff. The patient is on trial of medications for severe psychosis. She has paranoid delusions, irritability, anxiety and debility. We were adjusting medications for symptom relief. ____ available, lithium level is 0.3, she has no side effects at this time, no complaining of tremor. At times, she does have bizarre behavior including ____ naked and wandering. She has had no aggression or striking out. She denies EPS, tardive dyskinesia. We will continue to adjust medications and monitor for side effects. JOB# [id number]
[2017-03-07] MEDS: Fenofibrate, Micronized 134 mg Cap PO SCH (20:25)
[2017-03-08] MEDS: INSULIN ASPART, RECOMBINANT 100 UNITS/ML SUBQ SCH ×4 (06:46→21:18)
[2017-03-08] MEDS: Multivitamin Tab PO SCH (10:58)
[2017-03-08] MEDS: Ferrous Sulfate 325 MG TAB PO SCH (10:59)
--- NOTE | 2017-03-08 13:24 | Internal Medicine Prog Note ---
Internal Medicine Subjective - Subjective Patient seen and examined:: with staff, chart reviewed Patient is:: awake, verbal, interactive Per staff patient is:: no adverse event, no episodes of fall, poor appetite, confused Internal Medicine Objective - Results Result Diagrams: 02/27/17 20:32 02/27/17 20:32 Recent Labs: Laboratory Last Values WBC 11.2 Th/cmm (4.8-10.8) H 02/27/17 20:32 RBC 4.87 Mil/cmm (3.80-5.20) 02/27/17 20:32 Hgb 13.3 gm/dL (11.7-16.1) 02/27/17 20:32 Hct 39.2 % (35.0-45.0) 02/27/17 20:32 MCV 80.5 fl (81-100) L 02/27/17 20:32 MCH 27.3 pg (27.0-31.0) 02/27/17 20:32 MCHC Differential 33.9 pg (28.0-36.0) 02/27/17 20:32 RDW 14.7 % (11.5-20.0) 02/27/17 20:32 Plt Count 551 Th/cmm (150-400) H 02/27/17 20:32 MPV 6.8 fl 02/27/17 20:32 Neutrophils % 74.0 % (40.0-80.0) 02/27/17 20:32 Lymphocytes % 15.6 % (20.0-50.0) L 02/27/17 20:32 Monocytes % 3.9 % (2.0-10.0) 02/27/17 20:32 Eosinophils % 5.7 % (0.0-5.0) H 02/27/17 20:32 Basophils % 0.8 % (0.0-2.0) 02/27/17 20:32 Sodium 127 mEq/L (136-145) L 02/27/17 20:32 Potassium 4.0 mEq/L (3.5-5.1) 02/27/17 20:32 Chloride 96 mEq/L (98-107) L 02/27/17 20:32 Carbon Dioxide 25.4 mEq/L (21.0-31.0) 02/27/17 20:32 Anion Gap 9.6 (7.0-16.0) 02/27/17 20:32 BUN 18 mg/dL (7-25) 02/27/17 20:32 Creatinine 0.7 mg/dL (0.6-1.2) 02/27/17 20:32 Est GFR ( Amer) > 60.0 ml/min (>90) 02/27/17 20:32 Est GFR (Non-Af Amer) > 60.0 ml/min 02/27/17 20:32 BUN/Creatinine Ratio 25.7 02/27/17 20:32 Glucose 178 mg/dL (70-105) H 02/27/17 20:32 POC Glucose 127 MG/DL (70 - 105) H 03/08/17 11:56 Calcium 10.5 mg/dL (8.6-10.3) H 02/27/17 20:32 Total Bilirubin 0.3 mg/dL (0.3-1.0) 02/27/17 20:32 AST 17 U/L (13-39) 02/27/17 20:32 ALT 18 U/L (7-52) 02/27/17 20:32 Alkaline Phosphatase 84 U/L (34-104) 02/27/17 20:32 Creatine Kinase 50 U/L (30-223) 02/27/17 20:32 CK-MB (CK-2) 1.3 ng/mL (0.6-6.3) 02/27/17 20:32 Troponin I 0.01 ng/mL (0.01-0.05) 02/27/17 20:32 Total Protein 7.8 gm/dL (6.0-8.3) 02/27/17 20:32 Albumin 4.6 gm/dL (3.7-5.3) 02/27/17 20:32 Globulin 3.2 gm/dL 02/27/17 20:32 Albumin/Globulin Ratio 1.4 (1.0-1.8) 02/27/17 20:32 Amylase 27 U/L (29-103) L 02/27/17 20:32 Lipase 46 U/L (11-82) 02/27/17 20:32 TSH 1.36 uIU/ml (0.34-5.60) 02/27/17 20:32 Urine Source CLEAN C 02/27/17 21:55 Urine Color YELLOW 02/27/17 21:55 Urine Clarity HAZY (CLEAR) 02/27/17 21:55 Urine pH 7.0 02/27/17 21:55 Ur Specific [place] 1.020 (1.005-1.030) 02/27/17 21:55 Urine Protein NEGATIVE mg/dL (NEGATIVE) 02/27/17 21:55 Urine Glucose (UA) NEGATIVE mg/dL (NEGATIVE) 02/27/17 21:55 Urine Ketones NEGATIVE mg/dL (NEGATIVE) 02/27/17 21:55 Urine Blood NEGATIVE (NEGATIVE) 02/27/17 21:55 Urine Nitrate NEGATIVE (NEGATIVE) 02/27/17 21:55 Urine Bilirubin NEGATIVE (NEGATIVE) 02/27/17 21:55 Urine Urobilinogen 0.2 E.U./dL (0.2 - 1.0) 02/27/17 21:55 Ur Leukocyte Esterase NEGATIVE (NEGATIVE) 02/27/17 21:55 Urine RBC 0-2 /hpf (0-5) 02/27/17 21:55 Urine WBC 0-2 /hpf (0-5) 02/27/17 21:55 Ur Epithelial Cells FEW /lpf (FEW) 02/27/17 21:55 Urine Bacteria FEW /hpf (NONE SEEN) 02/27/17 21:55 Urine Opiates Screen NEGATIVE (NEGATIVE) 02/27/17 21:55 Urine Methadone Screen NEGATIVE (NEGATIVE) 02/27/17 21:55 Ur Barbiturates Screen NEGATIVE (NEGATIVE) 02/27/17 21:55 Ur Tricyclics Screen NEGATIVE (NEGATIVE) 02/27/17 21:55 Ur Phencyclidine Scrn NEGATIVE (NEGATIVE) 02/27/17 21:55 Amphetamines Screen NEGATIVE (NEGATIVE) 02/27/17 21:55 U Methamphetamines Scrn NEGATIVE (NEGATIVE) 02/27/17 21:55 U Benzodiazepines Scrn NEGATIVE (NEGATIVE) 02/27/17 21:55 Tony 0.35 MEQ/L (0.50-1.00) 03/05/17 07:25 U Cocaine Metab Screen NEGATIVE (NEGATIVE) 02/27/17 21:55 U Cannabinoids Screen NEGATIVE (NEGATIVE) 02/27/17 21:55 Ethyl Alcohol < 10 mg/dL (0-10) 02/27/17 20:32 RPR NONREACTIVE (NONREACTIVE) 02/27/17 20:32 - Physical Exam Vitals and I&O: Vital Signs Temp 97.5 F 03/08/17 06:33 Pulse 91 03/08/17 06:33 Resp 20 03/08/17 06:33 BP 145/68 03/08/17 06:33 Pulse Ox 98 03/08/17 06:33 Intake & Output 03/07/17 03/08/17 03/08/17 18:59 06:59 18:59 Intake Total 900 120 Balance 900 120 Weight (lbs) 56.79 kg Intake: Oral 900 120 Other: # Voids 3 3 # Bowel Movements 1 Stool Characteristics Formed Formed Active Medications: Current Medications Acetaminophen (Tylenol) 650 mg PO Q4HR PRN PRN Reason: Pain or Fever >101 Stop: 04/28/17 22:15 Aspirin (Ecotrin) 81 mg PO DAILY [facility] Stop: 04/29/17 08:59 Last Admin: 03/08/17 10:57 Dose: 81 mg Calcium Carbonate (Os-Magno) 500 mg PO DAILY [facility] Stop: 04/29/17 08:59 Last Admin: 03/08/17 11:00 Dose: Not Given Fenofibrate (Tricor) 134 mg PO HS [facility] Stop: 04/29/17 20:59 Last Admin: 03/07/17 20:25 Dose: 134 mg Ferrous Sulfate (Iron) 325 mg PO DAILY [facility] Stop: 04/29/17 08:59 Last Admin: 03/08/17 10:59 Dose: 325 mg Glipizide (Glucotrol) 20 mg PO BIDAC [facility] Stop: 04/29/17 07:29 Last Admin: 03/08/17 06:46 Dose: Not Given Insulin Aspart (Novolog) 0 units SUBQ ACHS [facility] PRN Reason: Protocol Stop: 04/29/17 07:29 Last Admin: 03/08/17 12:22 Dose: Not Given Tony Carbonate (Eskalith) 450 mg PO HS [facility] Stop: 04/29/17 20:59 Last Admin: 03/07/17 20:25 Dose: 450 mg Lorazepam (Ativan) 2 mg PO Q6HR PRN PRN Reason: Agitation Last Admin: 03/07/17 15:16 Dose: 2 mg Magnesium Hydroxide (Milk Of Magnesia) 30 ml PO HS PRN PRN Reason: Constipation Stop: 04/28/17 22:13 Metformin HCl (Glucophage) 1,000 mg PO BID [facility] Stop: 04/29/17 08:59 Last Admin: 03/08/17 10:57 Dose: 1,000 mg Multivitamins/Vitamin C (Theragran) 1 tab PO DAILY [facility] Stop: 04/29/17 08:59 Last Admin: 03/08/17 10:58 Dose: 1 tab Oxcarbazepine (Trileptal) 600 mg PO BID [facility] PRN Reason: Protocol Stop: 04/29/17 08:59 Last Admin: 03/08/17 10:57 Dose: 600 mg Risperidone (Risperdal) 2 mg PO BID [facility] PRN Reason: Protocol Stop: 04/29/17 08:59 Last Admin: 03/08/17 10:57 Dose: 2 mg Sitagliptin Phosphate (Januvia) 100 mg PO DAILY [facility] Stop: 04/29/17 08:59 Last Admin: 03/08/17 10:59 Dose: 100 mg Sodium Chloride (Nacl Tab) 1 gm PO BID [facility] Stop: 04/29/17 08:59 Last Admin: 03/08/17 10:59 Dose: 1 gm General: demented HEENT: NC/AT, PERRLA Neck: Supple, No JVD Lungs: CTAB Cardiovascular: RRR, Normal S1, Normal S2 Abdomen: soft non-tender, globular, positive bowel sound Extremities: excoriation Neurological: no change Internal Medicine Assmt/Plan - Assessment Assessment: dm \anemia htn elevated chol low na gerd hyperglecemia decub ulcer - Plan Plan: ada diet low na diet cont on statin cont on ppi dw rn Nutritional Asmnt/Malnutr-PDOC - Dietary Evaluation Malnutrition Findings (Please click <Entered> for more info): Nutritional Asmnt/Malnutrition Start: 03/01/17 15: 04 Text: Status: Complete Freq: Document 03/01/17 15:04 GSUN (Rec: 03/01/17 15:20 [facility] Nutritional Asmnt/Malnutrition Patient General Information Nutritional Screening Consult Diagnosis Agitation Pertinent Medical Hx/Surgical Hx DM, HTN, hypercholesterolemia, GERD, thrombocytosis Subjective Information 67 year old female from SNF. RD consult for wounds, scar tissue. Pt is a poor historian , able to repeatedly ask for coffee, however kept going off topic and was unable to answer RD's questions. Pt appeared thin, mild wasting to chest and legs noted. Pt is edentulous, denied difficulties chewing. Avg PO intake 100% of meals, meeting nutritional needs. Current Diet Order/ Nutrition Support Regular Pertinent Medications Os-Magno, Iron, Glucotrol, Novolog, MOM, Glucophage, Theragran Pertinent Labs 02/27: glucose 178H. Nutritional Hx/Data Height 1.7 m Height (Calculated Centimeters) 170.2 Current Weight (lbs) 55.928 kg Weight (Calculated Kilograms) 55.9 Weight (Calculated Grams) 26567.9 [place] Body Weight 135 Weight Status Approriate GI Symptoms Food Allergies No Usual diet at home [place]: regular, EMMA, all vegetables cooked, thin liquids Skin Integrity/Comment: Prasanna 22. Current %PO Good (75-100%) Estimated Nutritional Goals Calories/Kcals/Kg IBW 135lb/61.4kg Kcals Calculated 1535-1842kcal (25-30kcal/kg) Protein g/kg: IBW Protein Calculated 61g (1g/kg) Fluid: ml 1535-1842ml (1ml/kcal) Nutritional Problem 1. Problem Problem Altered nutrition related laboratory values related to Etiology DM aeb Signs/Symptoms: H&P, elevated glucose levels, pt is on DM medications Intervention/Recommendation Comments 1. Recommend [id number] to promtoe glycemic control. Expected Outcomes/Goals Expected Outcomes/Goals 1. PO intake continue to meet at least 75% of estimated nutritional needs.
[2017-03-08] MEDS: Fenofibrate, Micronized 134 mg Cap PO SCH (20:16)
[2017-03-09] MEDS: INSULIN ASPART, RECOMBINANT 100 UNITS/ML SUBQ SCH ×4 (06:39→20:11)
--- NOTE | 2017-03-09 08:38 | Progress Notes ---
DATE: 03/08/2017 The patient is seen in inpatient unit. The patient is on trial of medications for psychosis. We are titrating Risperdal mg b.i.d. The patient continues to be disorganized and confused and responding to internal stimuli, talking and seeing others. She has paranoid, fearful, delusional, and suspicious. Does not know where she will go. Working with her on medication compliance, taking medications. Monitor for side effects of medication. Encourage and coping skills. JOB# [id number]
[2017-03-09] MEDS: Ferrous Sulfate 325 MG TAB PO SCH (08:44)
[2017-03-09] MEDS: Multivitamin Tab PO SCH (08:44)
--- NOTE | 2017-03-09 09:37 | Progress Notes ---
DATE: 03/08/2017 The patient was seen in inpatient unit. The patient complains of severe psychosis. She says that voices are loud, they are very negative. They are telling her what to do. She feels unsafe ____ based on ____ hallucination. She is very isolated in her room, talking ____. The patient complains of scratching, since she has rash on her leg. The patient will be referred to medical team. The patient is on ____ medications. She is on lithium. Her most recent lithium level is 0.3. She denies side effects. She is on Trileptal for mood stabilization. PLAN: To titrate Risperdal to 3 mg b.i.d. I met with social work and psychologist, nursing staff regarding care. Goals for therapy and placement opportunities. JOB# [id number]
--- NOTE | 2017-03-09 16:56 | Internal Medicine Prog Note ---
Internal Medicine Subjective - Subjective Patient seen and examined:: with staff, chart reviewed Patient is:: awake, verbal, interactive Per staff patient is:: no adverse event, poor appetite Internal Medicine Objective - Results Result Diagrams: 02/27/17 20:32 02/27/17 20:32 Recent Labs: Laboratory Last Values WBC 11.2 Th/cmm (4.8-10.8) H 02/27/17 20:32 RBC 4.87 Mil/cmm (3.80-5.20) 02/27/17 20:32 Hgb 13.3 gm/dL (11.7-16.1) 02/27/17 20:32 Hct 39.2 % (35.0-45.0) 02/27/17 20: MCV 80.5 fl (81-100) L 02/27/17 20:32 MCH 27.3 pg (27.0-31.0) 02/27/17 20: MCHC Differential 33.9 pg (28.0-36.0) 02/27/17 20:32 RDW 14.7 % (11.5-20.0) 02/27/17 20:32 Plt Count 551 Th/cmm (150-400) H 02/27/17 20:32 MPV 6.8 fl 02/27/17 20:32 Neutrophils % 74.0 % (40.0-80.0) 02/27/17 20:32 Lymphocytes % 15.6 % (20.0-50.0) L 02/27/17 20: Monocytes % 3.9 % (2.0-10.0) 02/27/17 20: Eosinophils % 5.7 % (0.0-5.0) H 02/27/17 20: Basophils % 0.8 % (0.0-2.0) 02/27/17 20:32 Sodium 127 mEq/L (136-145) L 02/27/17 20:32 Potassium 4.0 mEq/L (3.5-5.1) 02/27/17 20:32 Chloride 96 mEq/L (98-107) L 02/27/17 20: Carbon Dioxide 25.4 mEq/L (21.0-31.0) 02/27/17 20:32 Anion Gap 9.6 (7.0-16.0) 02/27/17 20:32 BUN 18 mg/dL (7-25) 02/27/17 20:32 Creatinine 0.7 mg/dL (0.6-1.2) 02/27/17 20:32 Est GFR ( Amer) > 60.0 ml/min (>90) 02/27/17 20:32 Est GFR (Non-Af Amer) > 60.0 ml/min 02/27/17 20:32 BUN/Creatinine Ratio 25.7 02/27/17 20:32 Glucose 178 mg/dL (70-105) H 02/27/17 20:32 POC Glucose 118 MG/DL (70 - 105) H 03/09/17 16:10 Calcium 10.5 mg/dL (8.6-10.3) H 02/27/17 20:32 Total Bilirubin 0.3 mg/dL (0.3-1.0) 02/27/17 20:32 AST 17 U/L (13-39) 02/27/17 20:32 ALT 18 U/L (7-52) 02/27/17 20:32 Alkaline Phosphatase 84 U/L (34-104) 02/27/17 20:32 Creatine Kinase 50 U/L (30-223) 02/27/17 20:32 CK-MB (CK-2) 1.3 ng/mL (0.6-6.3) 02/27/17 20:32 Troponin I 0.01 ng/mL (0.01-0.05) 02/27/17 20:32 Total Protein 7.8 gm/dL (6.0-8.3) 02/27/17 20:32 Albumin 4.6 gm/dL (3.7-5.3) 02/27/17 20:32 Globulin 3.2 gm/dL 02/27/17 20:32 Albumin/Globulin Ratio 1.4 (1.0-1.8) 02/27/17 20:32 Amylase 27 U/L (29-103) L 02/27/17 20:32 Lipase 46 U/L (11-82) 02/27/17 20:32 TSH 1.36 uIU/ml (0.34-5.60) 02/27/17 20:32 Urine Source CLEAN C 02/27/17 21:55 Urine Color YELLOW 02/27/17 21:55 Urine Clarity HAZY (CLEAR) 02/27/17 21:55 Urine pH 7.0 02/27/17 21:55 Ur Specific [place] 1.020 (1.005-1.030) 02/27/17 21:55 Urine Protein NEGATIVE mg/dL (NEGATIVE) 02/27/17 21:55 Urine Glucose (UA) NEGATIVE mg/dL (NEGATIVE) 02/27/17 21:55 Urine Ketones NEGATIVE mg/dL (NEGATIVE) 02/27/17 21:55 Urine Blood NEGATIVE (NEGATIVE) 02/27/17 21:55 Urine Nitrate NEGATIVE (NEGATIVE) 02/27/17 21:55 Urine Bilirubin NEGATIVE (NEGATIVE) 02/27/17 21:55 Urine Urobilinogen 0.2 E.U./dL (0.2 - 1.0) 02/27/17 21:55 Ur Leukocyte Esterase NEGATIVE (NEGATIVE) 02/27/17 21:55 Urine RBC 0-2 /hpf (0-5) 02/27/17 21:55 Urine WBC 0-2 /hpf (0-5) 02/27/17 21:55 Ur Epithelial Cells FEW /lpf (FEW) 02/27/17 21:55 Urine Bacteria FEW /hpf (NONE SEEN) 02/27/17 21:55 Urine Opiates Screen NEGATIVE (NEGATIVE) 02/27/17 21:55 Urine Methadone Screen NEGATIVE (NEGATIVE) 02/27/17 21:55 Ur Barbiturates Screen NEGATIVE (NEGATIVE) 02/27/17 21:55 Ur Tricyclics Screen NEGATIVE (NEGATIVE) 02/27/17 21:55 Ur Phencyclidine Scrn NEGATIVE (NEGATIVE) 02/27/17 21:55 Amphetamines Screen NEGATIVE (NEGATIVE) 02/27/17 21:55 U Methamphetamines Scrn NEGATIVE (NEGATIVE) 02/27/17 21:55 U Benzodiazepines Scrn NEGATIVE (NEGATIVE) 02/27/17 21:55 [place] 0.35 MEQ/L (0.50-1.00) 03/05/17 07:25 U Cocaine Metab Screen NEGATIVE (NEGATIVE) 02/27/17 21:55 U Cannabinoids Screen NEGATIVE (NEGATIVE) 02/27/17 21:55 Ethyl Alcohol < 10 mg/dL (0-10) 02/27/17 20:32 RPR NONREACTIVE (NONREACTIVE) 02/27/17 20:32 - Physical Exam Vitals and I&O: Vital Signs Temp 98.0 F 03/09/17 14:57 Pulse 83 03/09/17 14:57 Resp 20 03/09/17 14:57 BP 118/60 03/09/17 14:57 Pulse Ox 97 03/09/17 14:57 Intake & Output 03/08/17 03/09/17 03/09/17 18:59 06:59 18:59 Intake Total 900 Balance 900 Intake: Oral 900 Other: # Voids 4 2 # Bowel Movements 1 Stool Characteristics Formed Formed Formed Active Medications: Current Medications Acetaminophen (Tylenol) 650 mg PO Q4HR PRN PRN Reason: Pain or Fever >101 Stop: 04/28/17 22:15 Aspirin (Ecotrin) 81 mg PO DAILY [facility] Stop: 04/29/17 08:59 Last Admin: 03/09/17 08:44 Dose: 81 mg Calcium Carbonate (Os-Magno) 500 mg PO DAILY [facility] Stop: 04/29/17 08:59 Last Admin: 03/09/17 08:45 Dose: 500 mg Fenofibrate (Tricor) 134 mg PO HS [facility] Stop: 04/29/17 20:59 Last Admin: 03/08/17 20:16 Dose: 134 mg Ferrous Sulfate (Iron) 325 mg PO DAILY [facility] Stop: 04/29/17 08:59 Last Admin: 03/09/17 08:44 Dose: 325 mg Glipizide (Glucotrol) 20 mg PO BIDAC [facility] Stop: 04/29/17 07:29 Last Admin: 03/09/17 06:38 Dose: 20 mg Insulin Aspart (Novolog) 0 units SUBQ ACHS [facility] PRN Reason: Protocol Stop: 04/29/17 07:29 Last Admin: 03/09/17 12:16 Dose: Not Given [place] Carbonate (Eskalith) 450 mg PO HS [facility] Stop: 04/29/17 20:59 Last Admin: 03/08/17 20:16 Dose: 450 mg Lorazepam (Ativan) 2 mg PO Q6HR PRN PRN Reason: Agitation Last Admin: 03/07/17 15:16 Dose: 2 mg Magnesium Hydroxide (Milk Of Magnesia) 30 ml PO HS PRN PRN Reason: Constipation Stop: 04/28/17 22:13 Metformin HCl (Glucophage) 1,000 mg PO BID [facility] Stop: 04/29/17 08:59 Last Admin: 03/09/17 08:45 Dose: 1,000 mg Multivitamins/Vitamin C (Theragran) 1 tab PO DAILY [facility] Stop: 04/29/17 08:59 Last Admin: 03/09/17 08:44 Dose: 1 tab Oxcarbazepine (Trileptal) 600 mg PO BID [facility] PRN Reason: Protocol Stop: 04/29/17 08:59 Last Admin: 03/09/17 08:43 Dose: 600 mg Risperidone (Risperdal) 3 mg PO BID [facility] PRN Reason: Protocol Stop: 04/29/17 16:59 Last Admin: 03/09/17 08:44 Dose: 3 mg Sitagliptin Phosphate (Januvia) 100 mg PO DAILY [facility] Stop: 04/29/17 08:59 Last Admin: 03/09/17 08:44 Dose: 100 mg Sodium Chloride (Nacl Tab) 1 gm PO BID [facility] Stop: 04/29/17 08:59 Last Admin: 03/09/17 08:44 Dose: 1 gm General: demented HEENT: NC/AT, PERRLA Neck: Supple, No JVD Lungs: CTAB Cardiovascular: RRR, Normal S1, Normal S2 Abdomen: soft non-tender, globular, positive bowel sound Extremities: excoriation Neurological: no change, unable to follow command Internal Medicine Assmt/Plan - Assessment Assessment: dm \anemia htn elevated chol low na gerd hyperglecemia decub ulcer - Plan Plan: ada diet low na diet cont on statin cont on ppi dw rn Nutritional Asmnt/Malnutr-PDOC - Dietary Evaluation Malnutrition Findings (Please click <Entered> for more info): Nutritional Asmnt/Malnutrition Start: 03/01/17 15: 04 Text: Status: Complete Freq: Document 03/01/17 15:04 GSUN (Rec: 03/01/17 15:20 GSUN [email or web address]) Nutritional Asmnt/Malnutrition Patient General Information Nutritional Screening Consult Diagnosis Agitation Pertinent Medical Hx/Surgical Hx DM, HTN, hypercholesterolemia, GERD, thrombocytosis Subjective Information 67 year old female from SNF. RD consult for wounds, scar tissue. Pt is a poor historian , able to repeatedly ask for coffee, however kept going off topic and was unable to answer RD's questions. Pt appeared thin, mild wasting to chest and legs noted. Pt is edentulous, denied difficulties chewing. Avg PO intake 100% of meals, meeting nutritional needs. Current Diet Order/ Nutrition Support Regular Pertinent Medications Os-Magno, Iron, Glucotrol, Novolog, MOM, Glucophage, Theragran Pertinent Labs 02/27: glucose 178H. Nutritional Hx/Data Height 1.7 m Height (Calculated Centimeters) 170.2 Current Weight (lbs) 55.928 kg Weight (Calculated Kilograms) 55.9 Weight (Calculated Grams) 20810.9 [place] Body Weight 135 Weight Status Approriate GI Symptoms Food Allergies No Usual diet at home [place]: regular, EMMA, all vegetables cooked, thin liquids Skin Integrity/Comment: Prasanna 22. Current %PO Good (75-100%) Estimated Nutritional Goals Calories/Kcals/Kg IBW 135lb/61.4kg Kcals Calculated 1535-1842kcal (25-30kcal/kg) Protein g/kg: IBW Protein Calculated 61g (1g/kg) Fluid: ml 1535-1842ml (1ml/kcal) Nutritional Problem 1. Problem Problem Altered nutrition related laboratory values related to Etiology DM aeb Signs/Symptoms: H&P, elevated glucose levels, pt is on DM medications Intervention/Recommendation Comments 1. Recommend [address] to promtoe glycemic control. Expected Outcomes/Goals Expected Outcomes/Goals 1. PO intake continue to meet at least 75% of estimated nutritional needs.
[2017-03-09] MEDS: Fenofibrate, Micronized 134 mg Cap PO SCH (20:09)
--- NOTE | 2017-03-10 03:53 | Progress Notes ---
DATE: 03/09/2017 TIME PATIENT SEEN: 11:30 a.m. SUBJECTIVE: Staff was spoken to. The patient is interviewed. Mood is noted to be irritable. Affect is constricted. The patient's mood swings are still the concerns. The patient is currently on 450 mg of lithium carbonate in the evening. The patient is also receiving oxcarbazepine 600 mg twice a day and Risperdal 3 mg twice a day. The patient with these medications is going to be closely monitored. ASSESSMENT: The patient is still having mood swings and psychosis. The patient is not ready to be discharged to a lower level of care. PLAN: To continue the patient with supportive therapy and follow up. [facility]# [id number]
[2017-03-10] MEDS: INSULIN ASPART, RECOMBINANT 100 UNITS/ML SUBQ SCH ×4 (06:37→20:52)
[2017-03-10] MEDS: Ferrous Sulfate 325 MG TAB PO SCH (08:46)
[2017-03-10] MEDS: Multivitamin Tab PO SCH (08:46)
[2017-03-10] MEDS: Fenofibrate, Micronized 134 mg Cap PO SCH (20:54)
--- NOTE | 2017-03-10 21:49 | Internal Medicine Prog Note ---
Internal Medicine Subjective - Subjective Patient seen and examined:: with staff, chart reviewed Patient is:: awake Per staff patient is:: no adverse event, no episodes of fall, confused Internal Medicine Objective - Results Result Diagrams: 02/27/17 20:32 02/27/17 20:32 Recent Labs: Laboratory Last Values WBC 11.2 Th/cmm (4.8-10.8) H 02/27/17 20:32 RBC 4.87 Mil/cmm (3.80-5.20) 02/27/17 20:32 Hgb 13.3 gm/dL (11.7-16.1) 02/27/17 20:32 Hct 39.2 % (35.0-45.0) 02/27/17 20:32 MCV 80.5 fl (81-100) L 02/27/17 20:32 MCH 27.3 pg (27.0-31.0) 02/27/17 20: MCHC Differential 33.9 pg (28.0-36.0) 02/27/17 20:32 RDW 14.7 % (11.5-20.0) 02/27/17 20:32 Plt Count 551 Th/cmm (150-400) H 02/27/17 20:32 MPV 6.8 fl 02/27/17 20:32 Neutrophils % 74.0 % (40.0-80.0) 02/27/17 20:32 Lymphocytes % 15.6 % (20.0-50.0) L 02/27/17 20: Monocytes % 3.9 % (2.0-10.0) 02/27/17 20: Eosinophils % 5.7 % (0.0-5.0) H 02/27/17 20: Basophils % 0.8 % (0.0-2.0) 02/27/17 20:32 Sodium 127 mEq/L (136-145) L 02/27/17 20:32 Potassium 4.0 mEq/L (3.5-5.1) 02/27/17 20:32 Chloride 96 mEq/L (98-107) L 02/27/17 20: Carbon Dioxide 25.4 mEq/L (21.0-31.0) 02/27/17 20:32 Anion Gap 9.6 (7.0-16.0) 02/27/17 20:32 BUN 18 mg/dL (7-25) 02/27/17 20:32 Creatinine 0.7 mg/dL (0.6-1.2) 02/27/17 20:32 Est GFR ( Amer) > 60.0 ml/min (>90) 02/27/17 20:32 Est GFR (Non-Af Amer) > 60.0 ml/min 02/27/17 20:32 BUN/Creatinine Ratio 25.7 02/27/17 20:32 Glucose 178 mg/dL (70-105) H 02/27/17 20:32 POC Glucose 104 MG/DL (70 - 105) 03/10/17 20:14 Calcium 10.5 mg/dL (8.6-10.3) H 02/27/17 20:32 Total Bilirubin 0.3 mg/dL (0.3-1.0) 02/27/17 20:32 AST 17 U/L (13-39) 02/27/17 20:32 ALT 18 U/L (7-52) 02/27/17 20:32 Alkaline Phosphatase 84 U/L (34-104) 02/27/17 20:32 Creatine Kinase 50 U/L (30-223) 02/27/17 20:32 CK-MB (CK-2) 1.3 ng/mL (0.6-6.3) 02/27/17 20:32 Troponin I 0.01 ng/mL (0.01-0.05) 02/27/17 20:32 Total Protein 7.8 gm/dL (6.0-8.3) 02/27/17 20:32 Albumin 4.6 gm/dL (3.7-5.3) 02/27/17 20:32 Globulin 3.2 gm/dL 02/27/17 20:32 Albumin/Globulin Ratio 1.4 (1.0-1.8) 02/27/17 20:32 Amylase 27 U/L (29-103) L 02/27/17 20:32 Lipase 46 U/L (11-82) 02/27/17 20:32 TSH 1.36 uIU/ml (0.34-5.60) 02/27/17 20:32 Urine Source CLEAN C 02/27/17 21:55 Urine Color YELLOW 02/27/17 21:55 Urine Clarity HAZY (CLEAR) 02/27/17 21:55 Urine pH 7.0 02/27/17 21:55 Ur Specific [place] 1.020 (1.005-1.030) 02/27/17 21:55 Urine Protein NEGATIVE mg/dL (NEGATIVE) 02/27/17 21:55 Urine Glucose (UA) NEGATIVE mg/dL (NEGATIVE) 02/27/17 21:55 Urine Ketones NEGATIVE mg/dL (NEGATIVE) 02/27/17 21:55 Urine Blood NEGATIVE (NEGATIVE) 02/27/17 21:55 Urine Nitrate NEGATIVE (NEGATIVE) 02/27/17 21:55 Urine Bilirubin NEGATIVE (NEGATIVE) 02/27/17 21:55 Urine Urobilinogen 0.2 E.U./dL (0.2 - 1.0) 02/27/17 21:55 Ur Leukocyte Esterase NEGATIVE (NEGATIVE) 02/27/17 21:55 Urine RBC 0-2 /hpf (0-5) 02/27/17 21:55 Urine WBC 0-2 /hpf (0-5) 02/27/17 21:55 Ur Epithelial Cells FEW /lpf (FEW) 02/27/17 21:55 Urine Bacteria FEW /hpf (NONE SEEN) 02/27/17 21:55 Urine Opiates Screen NEGATIVE (NEGATIVE) 02/27/17 21:55 Urine Methadone Screen NEGATIVE (NEGATIVE) 02/27/17 21:55 Ur Barbiturates Screen NEGATIVE (NEGATIVE) 02/27/17 21:55 Ur Tricyclics Screen NEGATIVE (NEGATIVE) 02/27/17 21:55 Ur Phencyclidine Scrn NEGATIVE (NEGATIVE) 02/27/17 21:55 Amphetamines Screen NEGATIVE (NEGATIVE) 02/27/17 21:55 U Methamphetamines Scrn NEGATIVE (NEGATIVE) 02/27/17 21:55 U Benzodiazepines Scrn NEGATIVE (NEGATIVE) 02/27/17 21:55 [place] 0.35 MEQ/L (0.50-1.00) 03/05/17 07:25 U Cocaine Metab Screen NEGATIVE (NEGATIVE) 02/27/17 21:55 U Cannabinoids Screen NEGATIVE (NEGATIVE) 02/27/17 21:55 Ethyl Alcohol < 10 mg/dL (0-10) 02/27/17 20:32 RPR NONREACTIVE (NONREACTIVE) 02/27/17 20:32 - Physical Exam Vitals and I&O: Vital Signs Temp 98 F 03/10/17 20:07 Pulse 78 03/10/17 20:07 Resp 19 03/10/17 20:07 BP 143/71 03/10/17 20:07 Pulse Ox 98 03/10/17 20:07 Intake & Output 03/10/17 03/10/17 03/11/17 06:59 18:59 06:59 Intake Total 480 1000 240 Balance 480 1000 240 Intake: Oral 480 1000 240 Other: # Voids 2 4 1 # Bowel Movements 1 Stool Characteristics Formed Formed Active Medications: Current Medications Acetaminophen (Tylenol) 650 mg PO Q4HR PRN PRN Reason: Pain or Fever >101 Stop: 04/28/17 22:15 Aspirin (Ecotrin) 81 mg PO DAILY [facility] Stop: 04/29/17 08:59 Last Admin: 03/10/17 08:46 Dose: 81 mg Calcium Carbonate (Os-Magno) 500 mg PO DAILY [facility] Stop: 04/29/17 08:59 Last Admin: 03/10/17 08:46 Dose: 500 mg Fenofibrate (Tricor) 134 mg PO HS [facility] Stop: 04/29/17 20:59 Last Admin: 03/10/17 20:54 Dose: 134 mg Ferrous Sulfate (Iron) 325 mg PO DAILY [facility] Stop: 04/29/17 08:59 Last Admin: 03/10/17 08:46 Dose: 325 mg Glipizide (Glucotrol) 20 mg PO BIDAC [facility] Stop: 04/29/17 07:29 Last Admin: 03/10/17 16:48 Dose: 20 mg Insulin Aspart (Novolog) 0 units SUBQ ACHS [facility] PRN Reason: Protocol Stop: 04/29/17 07:29 Last Admin: 03/10/17 20:52 Dose: Not Given [place] Carbonate (Eskalith) 450 mg PO HS [facility] Stop: 04/29/17 20:59 Last Admin: 03/10/17 20:54 Dose: 450 mg Lorazepam (Ativan) 2 mg PO Q6HR PRN PRN Reason: Agitation Last Admin: 03/07/17 15:16 Dose: 2 mg Magnesium Hydroxide (Milk Of Magnesia) 30 ml PO HS PRN PRN Reason: Constipation Stop: 04/28/17 22:13 Metformin HCl (Glucophage) 1,000 mg PO BID [facility] Stop: 04/29/17 08:59 Last Admin: 03/10/17 16:49 Dose: 1,000 mg Multivitamins/Vitamin C (Theragran) 1 tab PO DAILY [facility] Stop: 04/29/17 08:59 Last Admin: 03/10/17 08:46 Dose: 1 tab Oxcarbazepine (Trileptal) 600 mg PO BID [facility] PRN Reason: Protocol Stop: 04/29/17 08:59 Last Admin: 03/10/17 16:49 Dose: 600 mg Risperidone (Risperdal) 3 mg PO BID [facility] PRN Reason: Protocol Stop: 04/29/17 16:59 Last Admin: 03/10/17 16:49 Dose: 3 mg Sitagliptin Phosphate (Januvia) 100 mg PO DAILY [facility] Stop: 04/29/17 08:59 Last Admin: 03/10/17 09:12 Dose: 100 mg Sodium Chloride (Nacl Tab) 1 gm PO BID [facility] Stop: 04/29/17 08:59 Last Admin: 03/10/17 16:49 Dose: 1 gm General: demented HEENT: NC/AT, PERRLA Neck: Supple, No JVD Lungs: CTAB Cardiovascular: RRR, Normal S1 Abdomen: soft non-tender, globular, positive bowel sound Neurological: no change Internal Medicine Assmt/Plan - Assessment Assessment: dm \anemia htn elevated chol low na gerd hyperglecemia decub ulcer - Plan Plan: ada diet low na diet cont on statin cont on ppi dw rn Nutritional Asmnt/Malnutr-PDOC - Dietary Evaluation Malnutrition Findings (Please click <Entered> for more info): Nutritional Asmnt/Malnutrition Start: 03/01/17 15: 04 Text: Status: Complete Freq: Document 03/01/17 15:04 GSUN (Rec: 03/01/17 15:20 [email or web address] [email or web address]) Nutritional Asmnt/Malnutrition Patient General Information Nutritional Screening Consult Diagnosis Agitation Pertinent Medical Hx/Surgical Hx DM, HTN, hypercholesterolemia, GERD, thrombocytosis Subjective Information 67 year old female from SNF. RD consult for wounds, scar tissue. Pt is a poor historian , able to repeatedly ask for coffee, however kept going off topic and was unable to answer RD's questions. Pt appeared thin, mild wasting to chest and legs noted. Pt is edentulous, denied difficulties chewing. Avg PO intake 100% of meals, meeting nutritional needs. Current Diet Order/ Nutrition Support Regular Pertinent Medications Os-Magno, Iron, Glucotrol, Novolog, MOM, Glucophage, Theragran Pertinent Labs 02/27: glucose 178H. Nutritional Hx/Data Height 1.7 m Height (Calculated Centimeters) 170.2 Current Weight (lbs) 55.928 kg Weight (Calculated Kilograms) 55.9 Weight (Calculated Grams) 17798.9 [place] Body Weight 135 Weight Status Approriate GI Symptoms Food Allergies No Usual diet at home [place]: regular, EMMA, all vegetables cooked, thin liquids Skin Integrity/Comment: Pras[place] 22. Current %PO Good (75-100%) Estimated Nutritional Goals Calories/Kcals/Kg IBW 135lb/61.4kg Kcals Calculated 1535-1842kcal (25-30kcal/kg) Protein g/kg: IBW Protein Calculated 61g (1g/kg) Fluid: ml 1535-1842ml (1ml/kcal) Nutritional Problem 1. Problem Problem Altered nutrition related laboratory values related to Etiology DM aeb Signs/Symptoms: H&P, elevated glucose levels, pt is on DM medications Intervention/Recommendation Comments 1. Recommend [id number] to promtoe glycemic control. Expected Outcomes/Goals Expected Outcomes/Goals 1. PO intake continue to meet at least 75% of estimated nutritional needs.
--- NOTE | 2017-03-11 04:33 | Progress Notes ---
DATE: 03/10/2017 TIME PATIENT SEEN: 11:00 a.m. SUBJECTIVE: Staff was spoken to. The patient is interviewed. Mood is noted to be dysphoric. Coping skills are noted to be still poor. Sleep and appetite are also noted to be poor. The patient has been having difficult time to cope with the stress. The patient continues to be still displaying the mood swings. No side effects of the medications are noted. ASSESSMENT: The patient is still having acute mood swings. PLAN: To continue the patient with the current medications. I encouraged the patient to verbalize the concerns rather than to act out. JOB# [id number]
[2017-03-11] MEDS: INSULIN ASPART, RECOMBINANT 100 UNITS/ML SUBQ SCH ×4 (06:40→20:50)
[2017-03-11] MEDS: Multivitamin Tab PO SCH (09:55)
[2017-03-11] MEDS: Ferrous Sulfate 325 MG TAB PO SCH (09:55)
--- NOTE | 2017-03-11 12:38 | Internal Medicine Prog Note ---
Internal Medicine Subjective - Subjective Patient seen and examined:: with staff, chart reviewed Patient is:: awake, verbal, interactive Per staff patient is:: no adverse event, confused Internal Medicine Objective - Results Result Diagrams: 02/27/17 20:32 02/27/17 20:32 Recent Labs: Laboratory Last Values WBC 11.2 Th/cmm (4.8-10.8) H 02/27/17 20:32 RBC 4.87 Mil/cmm (3.80-5.20) 02/27/17 20:32 Hgb 13.3 gm/dL (11.7-16.1) 02/27/17 20:32 Hct 39.2 % (35.0-45.0) 02/27/17 20:32 MCV 80.5 fl (81-100) L 02/27/17 20:32 MCH 27.3 pg (27.0-31.0) 02/27/17 20: MCHC Differential 33.9 pg (28.0-36.0) 02/27/17 20:32 RDW 14.7 % (11.5-20.0) 02/27/17 20:32 Plt Count 551 Th/cmm (150-400) H 02/27/17 20:32 MPV 6.8 fl 02/27/17 20:32 Neutrophils % 74.0 % (40.0-80.0) 02/27/17 20:32 Lymphocytes % 15.6 % (20.0-50.0) L 02/27/17 20: Monocytes % 3.9 % (2.0-10.0) 02/27/17 20: Eosinophils % 5.7 % (0.0-5.0) H 02/27/17 20:32 Basophils % 0.8 % (0.0-2.0) 02/27/17 20:32 Sodium 127 mEq/L (136-145) L 02/27/17 20:32 Potassium 4.0 mEq/L (3.5-5.1) 02/27/17 20:32 Chloride 96 mEq/L (98-107) L 02/27/17 20:32 Carbon Dioxide 25.4 mEq/L (21.0-31.0) 02/27/17 20:32 Anion Gap 9.6 (7.0-16.0) 02/27/17 20:32 BUN 18 mg/dL (7-25) 02/27/17 20:32 Creatinine 0.7 mg/dL (0.6-1.2) 02/27/17 20:32 Est GFR ( Amer) > 60.0 ml/min (>90) 02/27/17 20:32 Est GFR (Non-Af Amer) > 60.0 ml/min 02/27/17 20:32 BUN/Creatinine Ratio 25.7 02/27/17 20:32 Glucose 178 mg/dL (70-105) H 02/27/17 20:32 POC Glucose 150 MG/DL (70 - 105) H 03/11/17 11:22 Calcium 10.5 mg/dL (8.6-10.3) H 02/27/17 20:32 Total Bilirubin 0.3 mg/dL (0.3-1.0) 02/27/17 20:32 AST 17 U/L (13-39) 02/27/17 20:32 ALT 18 U/L (7-52) 02/27/17 20:32 Alkaline Phosphatase 84 U/L (34-104) 02/27/17 20:32 Creatine Kinase 50 U/L (30-223) 02/27/17 20:32 CK-MB (CK-2) 1.3 ng/mL (0.6-6.3) 02/27/17 20:32 Troponin I 0.01 ng/mL (0.01-0.05) 02/27/17 20:32 Total Protein 7.8 gm/dL (6.0-8.3) 02/27/17 20:32 Albumin 4.6 gm/dL (3.7-5.3) 02/27/17 20:32 Globulin 3.2 gm/dL 02/27/17 20:32 Albumin/Globulin Ratio 1.4 (1.0-1.8) 02/27/17 20:32 Amylase 27 U/L (29-103) L 02/27/17 20:32 Lipase 46 U/L (11-82) 02/27/17 20:32 TSH 1.36 uIU/ml (0.34-5.60) 02/27/17 20:32 Urine Source CLEAN C 02/27/17 21:55 Urine Color YELLOW 02/27/17 21:55 Urine Clarity HAZY (CLEAR) 02/27/17 21:55 Urine pH 7.0 02/27/17 21:55 Ur Specific [place] 1.020 (1.005-1.030) 02/27/17 21:55 Urine Protein NEGATIVE mg/dL (NEGATIVE) 02/27/17 21:55 Urine Glucose (UA) NEGATIVE mg/dL (NEGATIVE) 02/27/17 21:55 Urine Ketones NEGATIVE mg/dL (NEGATIVE) 02/27/17 21:55 Urine Blood NEGATIVE (NEGATIVE) 02/27/17 21:55 Urine Nitrate NEGATIVE (NEGATIVE) 02/27/17 21:55 Urine Bilirubin NEGATIVE (NEGATIVE) 02/27/17 21:55 Urine Urobilinogen 0.2 E.U./dL (0.2 - 1.0) 02/27/17 21:55 Ur Leukocyte Esterase NEGATIVE (NEGATIVE) 02/27/17 21:55 Urine RBC 0-2 /hpf (0-5) 02/27/17 21:55 Urine WBC 0-2 /hpf (0-5) 02/27/17 21:55 Ur Epithelial Cells FEW /lpf (FEW) 02/27/17 21:55 Urine Bacteria FEW /hpf (NONE SEEN) 02/27/17 21:55 Urine Opiates Screen NEGATIVE (NEGATIVE) 02/27/17 21:55 Urine Methadone Screen NEGATIVE (NEGATIVE) 02/27/17 21:55 Ur Barbiturates Screen NEGATIVE (NEGATIVE) 02/27/17 21:55 Ur Tricyclics Screen NEGATIVE (NEGATIVE) 02/27/17 21:55 Ur Phencyclidine Scrn NEGATIVE (NEGATIVE) 02/27/17 21:55 Amphetamines Screen NEGATIVE (NEGATIVE) 02/27/17 21:55 U Methamphetamines Scrn NEGATIVE (NEGATIVE) 02/27/17 21:55 U Benzodiazepines Scrn NEGATIVE (NEGATIVE) 02/27/17 21:55 [place] 0.35 MEQ/L (0.50-1.00) 03/05/17 07:25 U Cocaine Metab Screen NEGATIVE (NEGATIVE) 02/27/17 21:55 U Cannabinoids Screen NEGATIVE (NEGATIVE) 02/27/17 21:55 Ethyl Alcohol < 10 mg/dL (0-10) 02/27/17 20:32 RPR NONREACTIVE (NONREACTIVE) 02/27/17 20:32 - Physical Exam Vitals and I&O: Vital Signs Temp 98.2 F 03/11/17 06:14 Pulse 87 03/11/17 11:01 Resp 20 03/11/17 11:01 BP 122/62 03/11/17 06:14 Pulse Ox 98 03/11/17 06:14 Intake & Output 03/10/17 03/11/17 03/11/17 18:59 06:59 18:59 Intake Total 1000 240 Balance 1000 240 Intake: Oral 1000 240 Other: # Voids 4 1 # Bowel Movements 1 0 Stool Characteristics Formed Active Medications: Current Medications Acetaminophen (Tylenol) 650 mg PO Q4HR PRN PRN Reason: Pain or Fever >101 Stop: 04/28/17 22:15 Aspirin (Ecotrin) 81 mg PO DAILY [facility] Stop: 04/29/17 08:59 Last Admin: 03/11/17 09:55 Dose: 81 mg Calcium Carbonate (Os-Magno) 500 mg PO DAILY [facility] Stop: 04/29/17 08:59 Last Admin: 03/11/17 09:54 Dose: 500 mg Fenofibrate (Tricor) 134 mg PO HS [facility] Stop: 04/29/17 20:59 Last Admin: 03/10/17 20:54 Dose: 134 mg Ferrous Sulfate (Iron) 325 mg PO DAILY [facility] Stop: 04/29/17 08:59 Last Admin: 03/11/17 09:55 Dose: 325 mg Glipizide (Glucotrol) 20 mg PO BIDAC [facility] Stop: 04/29/17 07:29 Last Admin: 03/11/17 06:35 Dose: 20 mg Insulin Aspart (Novolog) 0 units SUBQ ACHS [facility] PRN Reason: Protocol Stop: 04/29/17 07:29 Last Admin: 03/11/17 11:29 Dose: Not Given [place] Carbonate (Eskalith) 450 mg PO HS [facility] Stop: 04/29/17 20:59 Last Admin: 03/10/17 20:54 Dose: 450 mg Lorazepam (Ativan) 2 mg PO Q6HR PRN PRN Reason: Agitation Last Admin: 03/07/17 15:16 Dose: 2 mg Magnesium Hydroxide (Milk Of Magnesia) 30 ml PO HS PRN PRN Reason: Constipation Stop: 04/28/17 22:13 Metformin HCl (Glucophage) 1,000 mg PO BID [facility] Stop: 04/29/17 08:59 Last Admin: 03/11/17 09:54 Dose: 1,000 mg Multivitamins/Vitamin C (Theragran) 1 tab PO DAILY [facility] Stop: 04/29/17 08:59 Last Admin: 03/11/17 09:55 Dose: 1 tab Oxcarbazepine (Trileptal) 600 mg PO BID [facility] PRN Reason: Protocol Stop: 04/29/17 08:59 Last Admin: 03/11/17 09:54 Dose: 600 mg Risperidone (Risperdal) 3 mg PO BID [facility] PRN Reason: Protocol Stop: 04/29/17 16:59 Last Admin: 03/11/17 09:54 Dose: 3 mg Sitagliptin Phosphate (Januvia) 100 mg PO DAILY [facility] Stop: 04/29/17 08:59 Last Admin: 03/11/17 09:55 Dose: 100 mg Sodium Chloride (Nacl Tab) 1 gm PO BID [facility] Stop: 04/29/17 08:59 Last Admin: 03/11/17 09:54 Dose: 1 gm General: demented HEENT: NC/AT, PERRLA Neck: Supple, No JVD Lungs: CTAB Cardiovascular: RRR, Normal S1, Normal S2 Abdomen: soft non-tender, globular Extremities: excoriation, contracture Neurological: no change, disorganized Internal Medicine Assmt/Plan - Assessment Assessment: dm \anemia htn elevated chol low na gerd hyperglecemia decub ulcer - Plan Plan: ada diet low na diet cont on statin cont on ppi dw rn Nutritional Asmnt/Malnutr-PDOC - Dietary Evaluation Malnutrition Findings (Please click <Entered> for more info): Nutritional Asmnt/Malnutrition Start: 03/01/17 15: 04 Text: Status: Complete Freq: Document 03/01/17 15:04 GSUN (Rec: 03/01/17 15:20 [email or web address] [id number]) Nutritional Asmnt/Malnutrition Patient General Information Nutritional Screening Consult Diagnosis Agitation Pertinent Medical Hx/Surgical Hx DM, HTN, hypercholesterolemia, GERD, thrombocytosis Subjective Information 67 year old female from SNF. RD consult for wounds, scar tissue. Pt is a poor historian , able to repeatedly ask for coffee, however kept going off topic and was unable to answer RD's questions. Pt appeared thin, mild wasting to chest and legs noted. Pt is edentulous, denied difficulties chewing. Avg PO intake 100% of meals, meeting nutritional needs. Current Diet Order/ Nutrition Support Regular Pertinent Medications Os-Magno, Iron, Glucotrol, Novolog, MOM, Glucophage, Theragran Pertinent Labs 02/27: glucose 178H. Nutritional Hx/Data Height 1.7 m Height (Calculated Centimeters) 170.2 Current Weight (lbs) 55.928 kg Weight (Calculated Kilograms) 55.9 Weight (Calculated Grams) 07388.9 [place] Body Weight 135 Weight Status Approriate GI Symptoms Food Allergies No Usual diet at home [place]: regular, EMMA, all vegetables cooked, thin liquids Skin Integrity/Comment: Prasanna 22. Current %PO Good (75-100%) Estimated Nutritional Goals Calories/Kcals/Kg IBW 135lb/61.4kg Kcals Calculated 1535-1842kcal (25-30kcal/kg) Protein g/kg: IBW Protein Calculated 61g (1g/kg) Fluid: ml 1535-1842ml (1ml/kcal) Nutritional Problem 1. Problem Problem Altered nutrition related laboratory values related to Etiology DM aeb Signs/Symptoms: H&P, elevated glucose levels, pt is on DM medications Intervention/Recommendation Comments 1. Recommend [id number] to promtoe glycemic control. Expected Outcomes/Goals Expected Outcomes/Goals 1. PO intake continue to meet at least 75% of estimated nutritional needs.
[2017-03-11] MEDS: Fenofibrate, Micronized 134 mg Cap PO SCH (20:50)
[2017-03-12] MEDS: INSULIN ASPART, RECOMBINANT 100 UNITS/ML SUBQ SCH ×4 (06:33→20:43)
[2017-03-12] MEDS: Multivitamin Tab PO SCH (09:38)
[2017-03-12] MEDS: Ferrous Sulfate 325 MG TAB PO SCH (09:38)
--- NOTE | 2017-03-12 12:45 | Progress Notes ---
DATE: 03/11/2017 The patient will be on trial medications for severe psychosis. She has continued paranoid delusions, irritability, agitation, lability, confusion, disorganization, at times yelling and verbally abusive to staff and needs constant redirection, has minimal insight. She is on trial Risperdal, has no side effects, as well as lithium. I also provided Seroquel for refractory psychosis. Continue lithium and titrate lithium to therapeutic dose. Discharge when safe to do so. [facility]# [id number]
--- NOTE | 2017-03-12 15:14 | Internal Medicine Prog Note ---
Internal Medicine Subjective - Subjective Patient seen and examined:: with staff, chart reviewed Patient is:: awake, verbal, interactive Per staff patient is:: no adverse event, noncompliant, confused Internal Medicine Objective - Results Result Diagrams: 02/27/17 20:32 02/27/17 20:32 Recent Labs: Laboratory Last Values WBC 11.2 Th/cmm (4.8-10.8) H 02/27/17 20:32 RBC 4.87 Mil/cmm (3.80-5.20) 02/27/17 20:32 Hgb 13.3 gm/dL (11.7-16.1) 02/27/17 20:32 Hct 39.2 % (35.0-45.0) 02/27/17 20:32 MCV 80.5 fl (81-100) L 02/27/17 20:32 MCH 27.3 pg (27.0-31.0) 02/27/17 20: MCHC Differential 33.9 pg (28.0-36.0) 02/27/17 20:32 RDW 14.7 % (11.5-20.0) 02/27/17 20:32 Plt Count 551 Th/cmm (150-400) H 02/27/17 20:32 MPV 6.8 fl 02/27/17 20:32 Neutrophils % 74.0 % (40.0-80.0) 02/27/17 20:32 Lymphocytes % 15.6 % (20.0-50.0) L 02/27/17 20:32 Monocytes % 3.9 % (2.0-10.0) 02/27/17 20:32 Eosinophils % 5.7 % (0.0-5.0) H 02/27/17 20: Basophils % 0.8 % (0.0-2.0) 02/27/17 20:32 Sodium 127 mEq/L (136-145) L 02/27/17 20:32 Potassium 4.0 mEq/L (3.5-5.1) 02/27/17 20:32 Chloride 96 mEq/L (98-107) L 02/27/17 20:32 Carbon Dioxide 25.4 mEq/L (21.0-31.0) 02/27/17 20:32 Anion Gap 9.6 (7.0-16.0) 02/27/17 20:32 BUN 18 mg/dL (7-25) 02/27/17 20:32 Creatinine 0.7 mg/dL (0.6-1.2) 02/27/17 20:32 Est GFR ( Amer) > 60.0 ml/min (>90) 02/27/17 20:32 Est GFR (Non-Af Amer) > 60.0 ml/min 02/27/17 20:32 BUN/Creatinine Ratio 25.7 02/27/17 20:32 Glucose 178 mg/dL (70-105) H 02/27/17 20:32 POC Glucose 199 MG/DL (70 - 105) H 03/12/17 11:23 Calcium 10.5 mg/dL (8.6-10.3) H 02/27/17 20:32 Total Bilirubin 0.3 mg/dL (0.3-1.0) 02/27/17 20:32 AST 17 U/L (13-39) 02/27/17 20:32 ALT 18 U/L (7-52) 02/27/17 20:32 Alkaline Phosphatase 84 U/L (34-104) 02/27/17 20:32 Creatine Kinase 50 U/L (30-223) 02/27/17 20:32 CK-MB (CK-2) 1.3 ng/mL (0.6-6.3) 02/27/17 20:32 Troponin I 0.01 ng/mL (0.01-0.05) 02/27/17 20:32 Total Protein 7.8 gm/dL (6.0-8.3) 02/27/17 20:32 Albumin 4.6 gm/dL (3.7-5.3) 02/27/17 20:32 Globulin 3.2 gm/dL 02/27/17 20:32 Albumin/Globulin Ratio 1.4 (1.0-1.8) 02/27/17 20:32 Amylase 27 U/L (29-103) L 02/27/17 20:32 Lipase 46 U/L (11-82) 02/27/17 20:32 TSH 1.36 uIU/ml (0.34-5.60) 02/27/17 20:32 Urine Source CLEAN C 02/27/17 21:55 Urine Color YELLOW 02/27/17 21:55 Urine Clarity HAZY (CLEAR) 02/27/17 21:55 Urine pH 7.0 02/27/17 21:55 Ur Specific [place] 1.020 (1.005-1.030) 02/27/17 21:55 Urine Protein NEGATIVE mg/dL (NEGATIVE) 02/27/17 21:55 Urine Glucose (UA) NEGATIVE mg/dL (NEGATIVE) 02/27/17 21:55 Urine Ketones NEGATIVE mg/dL (NEGATIVE) 02/27/17 21:55 Urine Blood NEGATIVE (NEGATIVE) 02/27/17 21:55 Urine Nitrate NEGATIVE (NEGATIVE) 02/27/17 21:55 Urine Bilirubin NEGATIVE (NEGATIVE) 02/27/17 21:55 Urine Urobilinogen 0.2 E.U./dL (0.2 - 1.0) 02/27/17 21:55 Ur Leukocyte Esterase NEGATIVE (NEGATIVE) 02/27/17 21:55 Urine RBC 0-2 /hpf (0-5) 02/27/17 21:55 Urine WBC 0-2 /hpf (0-5) 02/27/17 21:55 Ur Epithelial Cells FEW /lpf (FEW) 02/27/17 21:55 Urine Bacteria FEW /hpf (NONE SEEN) 02/27/17 21:55 Urine Opiates Screen NEGATIVE (NEGATIVE) 02/27/17 21:55 Urine Methadone Screen NEGATIVE (NEGATIVE) 02/27/17 21:55 Ur Barbiturates Screen NEGATIVE (NEGATIVE) 02/27/17 21:55 Ur Tricyclics Screen NEGATIVE (NEGATIVE) 02/27/17 21:55 Ur Phencyclidine Scrn NEGATIVE (NEGATIVE) 02/27/17 21:55 Amphetamines Screen NEGATIVE (NEGATIVE) 02/27/17 21:55 U Methamphetamines Scrn NEGATIVE (NEGATIVE) 02/27/17 21:55 U Benzodiazepines Scrn NEGATIVE (NEGATIVE) 02/27/17 21:55 [place] 0.35 MEQ/L (0.50-1.00) 03/05/17 07:25 U Cocaine Metab Screen NEGATIVE (NEGATIVE) 02/27/17 21:55 U Cannabinoids Screen NEGATIVE (NEGATIVE) 02/27/17 21:55 Ethyl Alcohol < 10 mg/dL (0-10) 02/27/17 20:32 RPR NONREACTIVE (NONREACTIVE) 02/27/17 20:32 - Physical Exam Vitals and I&O: Vital Signs Temp 98.0 F 03/12/17 06:24 Pulse 66 03/12/17 08:00 Resp 19 03/12/17 08:00 BP 137/69 03/12/17 06:24 Pulse Ox 100 03/12/17 06:24 Intake & Output 03/11/17 03/12/17 03/12/17 18:59 06:59 18:59 Intake Total 2400 240 Balance 2400 240 Intake: Oral 2400 240 Other: # Voids 4 1 # Bowel Movements 1 0 Active Medications: Current Medications Acetaminophen (Tylenol) 650 mg PO Q4HR PRN PRN Reason: Pain or Fever >101 Stop: 04/28/17 22:15 Aspirin (Ecotrin) 81 mg PO DAILY [facility] Stop: 04/29/17 08:59 Last Admin: 03/12/17 09:47 Dose: 81 mg Calcium Carbonate (Os-Magno) 500 mg PO DAILY [facility] Stop: 04/29/17 08:59 Last Admin: 03/12/17 09:40 Dose: 500 mg Fenofibrate (Tricor) 134 mg PO HS [facility] Stop: 04/29/17 20:59 Last Admin: 03/11/17 20:50 Dose: 134 mg Ferrous Sulfate (Iron) 325 mg PO DAILY [facility] Stop: 04/29/17 08:59 Last Admin: 03/12/17 09:38 Dose: 325 mg Glipizide (Glucotrol) 20 mg PO BIDAC [facility] Stop: 04/29/17 07:29 Last Admin: 03/12/17 06:33 Dose: Not Given Insulin Aspart (Novolog) 0 units SUBQ ACHS [facility] PRN Reason: Protocol Stop: 04/29/17 07:29 Last Admin: 03/12/17 06:33 Dose: Not Given [place] Carbonate (Eskalith) 450 mg PO HS [facility] Stop: 04/29/17 20:59 Last Admin: 03/11/17 20:50 Dose: 450 mg Lorazepam (Ativan) 2 mg PO Q6HR PRN PRN Reason: Agitation Last Admin: 03/07/17 15:16 Dose: 2 mg Magnesium Hydroxide (Milk Of Magnesia) 30 ml PO HS PRN PRN Reason: Constipation Stop: 04/28/17 22:13 Metformin HCl (Glucophage) 1,000 mg PO BID [facility] Stop: 04/29/17 08:59 Last Admin: 03/12/17 09:40 Dose: 1,000 mg Multivitamins/Vitamin C (Theragran) 1 tab PO DAILY [facility] Stop: 04/29/17 08:59 Last Admin: 03/12/17 09:38 Dose: 1 tab Oxcarbazepine (Trileptal) 600 mg PO BID [facility] PRN Reason: Protocol Stop: 04/29/17 08:59 Last Admin: 03/12/17 09:39 Dose: 600 mg Quetiapine Fumarate 50 mg/ (Quetiapine Fumarate 25 mg) 75 mg PO HS [facility] Stop: 05/11/17 20:59 Risperidone (Risperdal) 3 mg PO BID [facility] PRN Reason: Protocol Stop: 04/29/17 16:59 Last Admin: 03/12/17 09:40 Dose: 3 mg Sitagliptin Phosphate (Januvia) 100 mg PO DAILY [facility] Stop: 04/29/17 08:59 Last Admin: 03/12/17 09:47 Dose: 100 mg Sodium Chloride (Nacl Tab) 1 gm PO BID [facility] Stop: 04/29/17 08:59 Last Admin: 03/12/17 09:38 Dose: 1 gm General: demented HEENT: NC/AT, PERRLA Neck: Supple, No JVD Lungs: CTAB Cardiovascular: RRR, Normal S1, Normal S2 Abdomen: soft non-tender, globular, positive bowel sound Extremities: excoriation, contracture Neurological: no change Internal Medicine Assmt/Plan - Assessment Assessment: dm \anemia htn elevated chol low na gerd hyperglecemia decub ulcer - Plan Plan: ada diet low na diet cont on statin cont on ppi dw rn Nutritional Asmnt/Malnutr-PDOC - Dietary Evaluation Malnutrition Findings (Please click <Entered> for more info): Nutritional Asmnt/Malnutrition Start: 03/01/17 15: 04 Text: Status: Complete Freq: Document 03/01/17 15:04 GSRYAN (Rec: 03/01/17 15:20 [email or web address] [id number]) Nutritional Asmnt/Malnutrition Patient General Information Nutritional Screening Consult Diagnosis Agitation Pertinent Medical Hx/Surgical Hx DM, HTN, hypercholesterolemia, GERD, thrombocytosis Subjective Information 67 year old female from SNF. RD consult for wounds, scar tissue. Pt is a poor historian , able to repeatedly ask for coffee, however kept going off topic and was unable to answer RD's questions. Pt appeared thin, mild wasting to chest and legs noted. Pt is edentulous, denied difficulties chewing. Avg PO intake 100% of meals, meeting nutritional needs. Current Diet Order/ Nutrition Support Regular Pertinent Medications Os-Magno, Iron, Glucotrol, Novolog, MOM, Glucophage, Theragran Pertinent Labs /: glucose 178H. Nutritional Hx/Data Height 1.7 m Height (Calculated Centimeters) 170.2 Current Weight (lbs) 55.928 kg Weight (Calculated Kilograms) 55.9 Weight (Calculated Grams) 80188.9 [place] Body Weight 135 Weight Status Approriate GI Symptoms Food Allergies No Usual diet at home [place]: regular, EMMA, all vegetables cooked, thin liquids Skin Integrity/Comment: Pras[place] 22. Current %PO Good (75-100%) Estimated Nutritional Goals Calories/Kcals/Kg IBW 135lb/61.4kg Kcals Calculated 1535-1842kcal (25-30kcal/kg) Protein g/kg: IBW Protein Calculated 61g (1g/kg) Fluid: ml 1535-1842ml (1ml/kcal) Nutritional Problem 1. Problem Problem Altered nutrition related laboratory values related to Etiology DM aeb Signs/Symptoms: H&P, elevated glucose levels, pt is on DM medications Intervention/Recommendation Comments 1. Recommend [id number] to promtoe glycemic control. Expected Outcomes/Goals Expected Outcomes/Goals 1. PO intake continue to meet at least 75% of estimated nutritional needs.
[2017-03-12] MEDS: Fenofibrate, Micronized 134 mg Cap PO SCH (20:43)
[2017-03-13] MEDS: INSULIN ASPART, RECOMBINANT 100 UNITS/ML SUBQ SCH ×4 (06:46→21:21)
[2017-03-13] MEDS: Ferrous Sulfate 325 MG TAB PO SCH (08:39)
[2017-03-13] MEDS: Multivitamin Tab PO SCH (08:39)
--- NOTE | 2017-03-13 12:49 | Progress Notes ---
DATE: 03/12/2017 The patient seen as inpatient. The patient is on trial medications for severe psychosis. We are adjusting Seroquel and Risperdal for control of symptoms of anxiety and agitation, lability and was seen for mood instability. She is tolerating medications without side effects. The patient is still yelling and argumentative, restless, confused, has no way to take care of herself. She is still disheveled ____ and extremely poor boundaries. At times, she is still making threatening statements. We are working with her on coping skills, ADLs and aftercare plan. Discharge when safe to do so. JOB# [id number]
--- NOTE | 2017-03-13 13:23 | Internal Medicine Prog Note ---
Internal Medicine Subjective - Subjective Patient seen and examined:: with staff, chart reviewed Patient is:: asleep, in bed Per staff patient is:: no adverse event, no episodes of fall, poor appetite, poor oral intake, confused Internal Medicine Objective - Results Result Diagrams: 02/27/17 20:32 02/27/17 20:32 Recent Labs: Laboratory Last Values WBC 11.2 Th/cmm (4.8-10.8) H 02/27/17 20:32 RBC 4.87 Mil/cmm (3.80-5.20) 02/27/17 20:32 Hgb 13.3 gm/dL (11.7-16.1) 02/27/17 20:32 Hct 39.2 % (35.0-45.0) 02/27/17 20:32 MCV 80.5 fl (81-100) L 02/27/17 20:32 MCH 27.3 pg (27.0-31.0) 02/27/17 20:32 MCHC Differential 33.9 pg (28.0-36.0) 02/27/17 20:32 RDW 14.7 % (11.5-20.0) 02/27/17 20:32 Plt Count 551 Th/cmm (150-400) H 02/27/17 20:32 MPV 6.8 fl 02/27/17 20:32 Neutrophils % 74.0 % (40.0-80.0) 02/27/17 20:32 Lymphocytes % 15.6 % (20.0-50.0) L 02/27/17 20:32 Monocytes % 3.9 % (2.0-10.0) 02/27/17 20:32 Eosinophils % 5.7 % (0.0-5.0) H 02/27/17 20:32 Basophils % 0.8 % (0.0-2.0) 02/27/17 20:32 Sodium 127 mEq/L (136-145) L 02/27/17 20:32 Potassium 4.0 mEq/L (3.5-5.1) 02/27/17 20:32 Chloride 96 mEq/L (98-107) L 02/27/17 20:32 Carbon Dioxide 25.4 mEq/L (21.0-31.0) 02/27/17 20:32 Anion Gap 9.6 (7.0-16.0) 02/27/17 20:32 BUN 18 mg/dL (7-25) 02/27/17 20:32 Creatinine 0.7 mg/dL (0.6-1.2) 02/27/17 20:32 Est GFR ( Amer) > 60.0 ml/min (>90) 02/27/17 20:32 Est GFR (Non-Af Amer) > 60.0 ml/min 02/27/17 20:32 BUN/Creatinine Ratio 25.7 02/27/17 20:32 Glucose 178 mg/dL (70-105) H 02/27/17 20:32 POC Glucose 108 MG/DL (70 - 105) H 03/13/17 11:10 Calcium 10.5 mg/dL (8.6-10.3) H 02/27/17 20:32 Total Bilirubin 0.3 mg/dL (0.3-1.0) 02/27/17 20:32 AST 17 U/L (13-39) 02/27/17 20:32 ALT 18 U/L (7-52) 02/27/17 20:32 Alkaline Phosphatase 84 U/L (34-104) 02/27/17 20:32 Creatine Kinase 50 U/L (30-223) 02/27/17 20:32 CK-MB (CK-2) 1.3 ng/mL (0.6-6.3) 02/27/17 20:32 Troponin I 0.01 ng/mL (0.01-0.05) 02/27/17 20:32 Total Protein 7.8 gm/dL (6.0-8.3) 02/27/17 20:32 Albumin 4.6 gm/dL (3.7-5.3) 02/27/17 20:32 Globulin 3.2 gm/dL 02/27/17 20:32 Albumin/Globulin Ratio 1.4 (1.0-1.8) 02/27/17 20:32 Amylase 27 U/L (29-103) L 02/27/17 20:32 Lipase 46 U/L (11-82) 02/27/17 20:32 TSH 1.36 uIU/ml (0.34-5.60) 02/27/17 20:32 Urine Source CLEAN C 02/27/17 21:55 Urine Color YELLOW 02/27/17 21:55 Urine Clarity HAZY (CLEAR) 02/27/17 21:55 Urine pH 7.0 02/27/17 21:55 Ur Specific [place] 1.020 (1.005-1.030) 02/27/17 21:55 Urine Protein NEGATIVE mg/dL (NEGATIVE) 02/27/17 21:55 Urine Glucose (UA) NEGATIVE mg/dL (NEGATIVE) 02/27/17 21:55 Urine Ketones NEGATIVE mg/dL (NEGATIVE) 02/27/17 21:55 Urine Blood NEGATIVE (NEGATIVE) 02/27/17 21:55 Urine Nitrate NEGATIVE (NEGATIVE) 02/27/17 21:55 Urine Bilirubin NEGATIVE (NEGATIVE) 02/27/17 21:55 Urine Urobilinogen 0.2 E.U./dL (0.2 - 1.0) 02/27/17 21:55 Ur Leukocyte Esterase NEGATIVE (NEGATIVE) 02/27/17 21:55 Urine RBC 0-2 /hpf (0-5) 02/27/17 21:55 Urine WBC 0-2 /hpf (0-5) 02/27/17 21:55 Ur Epithelial Cells FEW /lpf (FEW) 02/27/17 21:55 Urine Bacteria FEW /hpf (NONE SEEN) 02/27/17 21:55 Urine Opiates Screen NEGATIVE (NEGATIVE) 02/27/17 21:55 Urine Methadone Screen NEGATIVE (NEGATIVE) 02/27/17 21:55 Ur Barbiturates Screen NEGATIVE (NEGATIVE) 02/27/17 21:55 Ur Tricyclics Screen NEGATIVE (NEGATIVE) 02/27/17 21:55 Ur Phencyclidine Scrn NEGATIVE (NEGATIVE) 02/27/17 21:55 Amphetamines Screen NEGATIVE (NEGATIVE) 02/27/17 21:55 U Methamphetamines Scrn NEGATIVE (NEGATIVE) 02/27/17 21:55 U Benzodiazepines Scrn NEGATIVE (NEGATIVE) 02/27/17 21:55 [place] 0.35 MEQ/L (0.50-1.00) 03/05/17 07:25 U Cocaine Metab Screen NEGATIVE (NEGATIVE) 02/27/17 21:55 U Cannabinoids Screen NEGATIVE (NEGATIVE) 02/27/17 21:55 Ethyl Alcohol < 10 mg/dL (0-10) 02/27/17 20:32 RPR NONREACTIVE (NONREACTIVE) 02/27/17 20:32 - Physical Exam Vitals and I&O: Vital Signs Temp 98.0 F 03/13/17 05:56 Pulse 64 03/13/17 12:17 Resp 19 03/13/17 12:17 BP 107/76 03/13/17 05:56 Pulse Ox 98 03/13/17 05:56 Intake & Output 03/12/17 03/13/17 03/13/17 18:59 06:59 18:59 Intake Total 1999 120 Output Total 1 Balance 1998 120 Intake: Oral 1999 120 Output: Stool 1 Other: # Voids 5 1 # Bowel Movements 0 Stool Characteristics Soft Soft Active Medications: Current Medications Acetaminophen (Tylenol) 650 mg PO Q4HR PRN PRN Reason: Pain or Fever >101 Stop: 04/28/17 22:15 Aspirin (Ecotrin) 81 mg PO DAILY [facility] Stop: 04/29/17 08:59 Last Admin: 03/13/17 08:39 Dose: 81 mg Calcium Carbonate (Os-Magno) 500 mg PO DAILY [facility] Stop: 04/29/17 08:59 Last Admin: 03/13/17 08:39 Dose: 500 mg Fenofibrate (Tricor) 134 mg PO HS [facility] Stop: 04/29/17 20:59 Last Admin: 03/12/17 20:43 Dose: 134 mg Ferrous Sulfate (Iron) 325 mg PO DAILY [facility] Stop: 04/29/17 08:59 Last Admin: 03/13/17 08:39 Dose: 325 mg Glipizide (Glucotrol) 20 mg PO BIDAC [facility] Stop: 04/29/17 07:29 Last Admin: 03/13/17 06:46 Dose: Not Given Insulin Aspart (Novolog) 0 units SUBQ ACHS [facility] PRN Reason: Protocol Stop: 04/29/17 07:29 Last Admin: 03/13/17 12:26 Dose: Not Given [place] Carbonate (Eskalith) 450 mg PO HS [facility] Stop: 04/29/17 20:59 Last Admin: 03/12/17 20:43 Dose: 450 mg Lorazepam (Ativan) 2 mg PO Q6HR PRN PRN Reason: Agitation Last Admin: 03/07/17 15:16 Dose: 2 mg Magnesium Hydroxide (Milk Of Magnesia) 30 ml PO HS PRN PRN Reason: Constipation Stop: 04/28/17 22:13 Metformin HCl (Glucophage) 1,000 mg PO BID [facility] Stop: 04/29/17 08:59 Last Admin: 03/13/17 08:39 Dose: 1,000 mg Multivitamins/Vitamin C (Theragran) 1 tab PO DAILY [facility] Stop: 04/29/17 08:59 Last Admin: 03/13/17 08:39 Dose: 1 tab Oxcarbazepine (Trileptal) 600 mg PO BID [facility] PRN Reason: Protocol Stop: 04/29/17 08:59 Last Admin: 03/13/17 08:40 Dose: 600 mg Quetiapine Fumarate 50 mg/ (Quetiapine Fumarate 25 mg) 75 mg PO HS [facility] Stop: 05/11/17 20:59 Last Admin: 03/12/17 20:43 Dose: 75 mg Risperidone (Risperdal) 3 mg PO BID [facility] PRN Reason: Protocol Stop: 04/29/17 16:59 Last Admin: 03/13/17 08:40 Dose: 3 mg Sitagliptin Phosphate (Januvia) 100 mg PO DAILY [facility] Stop: 04/29/17 08:59 Last Admin: 03/13/17 08:40 Dose: 100 mg Sodium Chloride (Nacl Tab) 1 gm PO BID [facility] Stop: 04/29/17 08:59 Last Admin: 03/13/17 08:40 Dose: 1 gm General: demented HEENT: NC/AT, PERRLA Neck: Supple, No JVD Lungs: CTAB Cardiovascular: RRR, Normal S1, Normal S2 Abdomen: soft non-tender, thin, positive bowel sound Extremities: excoriation, contracture Neurological: no change, unable to follow command Internal Medicine Assmt/Plan - Assessment Assessment: dm \anemia htn elevated chol low na gerd hyperglecemia decub ulcer - Plan Plan: ada diet low na diet cont on statin cont on ppi dw rn Nutritional Asmnt/Malnutr-PDOC - Dietary Evaluation Malnutrition Findings (Please click <Entered> for more info): Nutritional Asmnt/Malnutrition Start: 03/01/17 15: 04 Text: Status: Complete Freq: Document 03/01/17 15:04 GSUN (Rec: 03/01/17 15:20 [email or web address] [id number]) Nutritional Asmnt/Malnutrition Patient General Information Nutritional Screening Consult Diagnosis Agitation Pertinent Medical Hx/Surgical Hx DM, HTN, hypercholesterolemia, GERD, thrombocytosis Subjective Information 67 year old female from SNF. RD consult for wounds, scar tissue. Pt is a poor historian , able to repeatedly ask for coffee, however kept going off topic and was unable to answer RD's questions. Pt appeared thin, mild wasting to chest and legs noted. Pt is edentulous, denied difficulties chewing. Avg PO intake 100% of meals, meeting nutritional needs. Current Diet Order/ Nutrition Support Regular Pertinent Medications Os-Magno, Iron, Glucotrol, Novolog, MOM, Glucophage, Theragran Pertinent Labs 02/27: glucose 178H. Nutritional Hx/Data Height 1.7 m Height (Calculated Centimeters) 170.2 Current Weight (lbs) 55.928 kg Weight (Calculated Kilograms) 55.9 Weight (Calculated Grams) 99483.9 [place] Body Weight 135 Weight Status Approriate GI Symptoms Food Allergies No Usual diet at home [place]: regular, [place], all vegetables cooked, thin liquids Skin Integrity/Comment: [place] 22. Current %PO Good (75-100%) Estimated Nutritional Goals Calories/Kcals/Kg IBW 135lb/61.4kg Kcals Calculated 1535-1842kcal (25-30kcal/kg) Protein g/kg: IBW Protein Calculated 61g (1g/kg) Fluid: ml 1535-1842ml (1ml/kcal) Nutritional Problem 1. Problem Problem Altered nutrition related laboratory values related to Etiology DM aeb Signs/Symptoms: H&P, elevated glucose levels, pt is on DM medications Intervention/Recommendation Comments 1. Recommend [address] to promtoe glycemic control. Expected Outcomes/Goals Expected Outcomes/Goals 1. PO intake continue to meet at least 75% of estimated nutritional needs.
[2017-03-13] MEDS: Fenofibrate, Micronized 134 mg Cap PO SCH (21:20)
--- NOTE | 2017-03-14 06:35 | Progress Notes ---
DATE: 03/13/2017 SUBJECTIVE: The patient is seen in Inpatient Unit. The patient is on trial of medications for psychotic features. She is doing well. She is responding to treatment, taking medications, has no side effects to medical therapy. At times, she has outburst, irritability and lability. She continues to have paranoid thoughts, delusional beliefs, and feels people conspiring against her. She is responding to internal stimuli. She denies suicidal thoughts or homicidal ideation. We will work with the patient, meet with social workers regarding aftercare planning, discharge when safe to do so. JOB# [id number]
[2017-03-14] MEDS: INSULIN ASPART, RECOMBINANT 100 UNITS/ML SUBQ SCH ×2 (06:39→12:12)
[2017-03-14] MEDS: Ferrous Sulfate 325 MG TAB PO SCH (08:28)
[2017-03-14] MEDS: Multivitamin Tab PO SCH (08:29)
--- NOTE | 2017-03-14 13:30 | Internal Medicine Prog Note ---
Internal Medicine Subjective - Subjective Patient seen and examined:: with staff, chart reviewed Patient is:: awake, verbal, interactive Per staff patient is:: no adverse event, eating well, confused Internal Medicine Objective - Results Result Diagrams: 02/27/17 20:32 02/27/17 20:32 Recent Labs: Laboratory Last Values WBC 11.2 Th/cmm (4.8-10.8) H 02/27/17 20:32 RBC 4.87 Mil/cmm (3.80-5.20) 02/27/17 20:32 Hgb 13.3 gm/dL (11.7-16.1) 02/27/17 20:32 Hct 39.2 % (35.0-45.0) 02/27/17 20:32 MCV 80.5 fl (81-100) L 02/27/17 20:32 MCH 27.3 pg (27.0-31.0) 02/27/17 20: MCHC Differential 33.9 pg (28.0-36.0) 02/27/17 20:32 RDW 14.7 % (11.5-20.0) 02/27/17 20:32 Plt Count 551 Th/cmm (150-400) H 02/27/17 20:32 MPV 6.8 fl 02/27/17 20:32 Neutrophils % 74.0 % (40.0-80.0) 02/27/17 20:32 Lymphocytes % 15.6 % (20.0-50.0) L 02/27/17 20:32 Monocytes % 3.9 % (2.0-10.0) 02/27/17 20: Eosinophils % 5.7 % (0.0-5.0) H 02/27/17 20: Basophils % 0.8 % (0.0-2.0) 02/27/17 20:32 Sodium 127 mEq/L (136-145) L 02/27/17 20:32 Potassium 4.0 mEq/L (3.5-5.1) 02/27/17 20:32 Chloride 96 mEq/L (98-107) L 02/27/17 20:32 Carbon Dioxide 25.4 mEq/L (21.0-31.0) 02/27/17 20:32 Anion Gap 9.6 (7.0-16.0) 02/27/17 20:32 BUN 18 mg/dL (7-25) 02/27/17 20:32 Creatinine 0.7 mg/dL (0.6-1.2) 02/27/17 20:32 Est GFR ( Amer) > 60.0 ml/min (>90) 02/27/17 20:32 Est GFR (Non-Af Amer) > 60.0 ml/min 02/27/17 20:32 BUN/Creatinine Ratio 25.7 02/27/17 20:32 Glucose 178 mg/dL (70-105) H 02/27/17 20:32 POC Glucose 75 MG/DL (70 - 105) 03/14/17 12:07 Calcium 10.5 mg/dL (8.6-10.3) H 02/27/17 20:32 Total Bilirubin 0.3 mg/dL (0.3-1.0) 02/27/17 20:32 AST 17 U/L (13-39) 02/27/17 20:32 ALT 18 U/L (7-52) 02/27/17 20:32 Alkaline Phosphatase 84 U/L (34-104) 02/27/17 20:32 Creatine Kinase 50 U/L (30-223) 02/27/17 20:32 CK-MB (CK-2) 1.3 ng/mL (0.6-6.3) 02/27/17 20:32 Troponin I 0.01 ng/mL (0.01-0.05) 02/27/17 20:32 Total Protein 7.8 gm/dL (6.0-8.3) 02/27/17 20:32 Albumin 4.6 gm/dL (3.7-5.3) 02/27/17 20:32 Globulin 3.2 gm/dL 02/27/17 20:32 Albumin/Globulin Ratio 1.4 (1.0-1.8) 02/27/17 20:32 Amylase 27 U/L (29-103) L 02/27/17 20:32 Lipase 46 U/L (11-82) 02/27/17 20:32 TSH 1.36 uIU/ml (0.34-5.60) 02/27/17 20:32 Urine Source CLEAN C 02/27/17 21:55 Urine Color YELLOW 02/27/17 21:55 Urine Clarity HAZY (CLEAR) 02/27/17 21:55 Urine pH 7.0 02/27/17 21:55 Ur Specific [place] 1.020 (1.005-1.030) 02/27/17 21:55 Urine Protein NEGATIVE mg/dL (NEGATIVE) 02/27/17 21:55 Urine Glucose (UA) NEGATIVE mg/dL (NEGATIVE) 02/27/17 21:55 Urine Ketones NEGATIVE mg/dL (NEGATIVE) 02/27/17 21:55 Urine Blood NEGATIVE (NEGATIVE) 02/27/17 21:55 Urine Nitrate NEGATIVE (NEGATIVE) 02/27/17 21:55 Urine Bilirubin NEGATIVE (NEGATIVE) 02/27/17 21:55 Urine Urobilinogen 0.2 E.U./dL (0.2 - 1.0) 02/27/17 21:55 Ur Leukocyte Esterase NEGATIVE (NEGATIVE) 02/27/17 21:55 Urine RBC 0-2 /hpf (0-5) 02/27/17 21:55 Urine WBC 0-2 /hpf (0-5) 02/27/17 21:55 Ur Epithelial Cells FEW /lpf (FEW) 02/27/17 21:55 Urine Bacteria FEW /hpf (NONE SEEN) 02/27/17 21:55 Urine Opiates Screen NEGATIVE (NEGATIVE) 02/27/17 21:55 Urine Methadone Screen NEGATIVE (NEGATIVE) 02/27/17 21:55 Ur Barbiturates Screen NEGATIVE (NEGATIVE) 02/27/17 21:55 Ur Tricyclics Screen NEGATIVE (NEGATIVE) 02/27/17 21:55 Ur Phencyclidine Scrn NEGATIVE (NEGATIVE) 02/27/17 21:55 Amphetamines Screen NEGATIVE (NEGATIVE) 02/27/17 21:55 U Methamphetamines Scrn NEGATIVE (NEGATIVE) 02/27/17 21:55 U Benzodiazepines Scrn NEGATIVE (NEGATIVE) 02/27/17 21:55 [place] 0.35 MEQ/L (0.50-1.00) 03/05/17 07:25 U Cocaine Metab Screen NEGATIVE (NEGATIVE) 02/27/17 21:55 U Cannabinoids Screen NEGATIVE (NEGATIVE) 02/27/17 21:55 Ethyl Alcohol < 10 mg/dL (0-10) 02/27/17 20:32 RPR NONREACTIVE (NONREACTIVE) 02/27/17 20:32 - Physical Exam Vitals and I&O: Vital Signs Temp 97.8 F 03/13/17 14:00 Pulse 69 03/14/17 11:34 Resp 20 03/14/17 11:34 BP 139/52 03/13/17 14:00 Pulse Ox 97 03/13/17 14:00 Intake & Output 03/13/17 03/14/17 03/14/17 18:59 06:59 18:59 Intake Total 900 Balance 900 Weight (lbs) 57.198 kg Intake: Oral 900 Other: # Voids 3 # Bowel Movements 1 Stool Characteristics Soft Active Medications: Current Medications Acetaminophen (Tylenol) 650 mg PO Q4HR PRN PRN Reason: Pain or Fever >101 Stop: 04/28/17 22:15 Aspirin (Ecotrin) 81 mg PO DAILY [facility] Stop: 04/29/17 08:59 Last Admin: 03/14/17 08:28 Dose: 81 mg Calcium Carbonate (Os-Magno) 500 mg PO DAILY RICKY Stop: 04/29/17 08:59 Last Admin: 03/14/17 08:28 Dose: 500 mg Fenofibrate (Tricor) 134 mg PO HS [facility] Stop: 04/29/17 20:59 Last Admin: 03/13/17 21:20 Dose: 134 mg Ferrous Sulfate (Iron) 325 mg PO DAILY [facility] Stop: 04/29/17 08:59 Last Admin: 03/14/17 08:28 Dose: 325 mg Glipizide (Glucotrol) 20 mg PO BIDAC [facility] Stop: 04/29/17 07:29 Last Admin: 03/14/17 06:39 Dose: 20 mg Insulin Aspart (Novolog) 0 units SUBQ ACHS RICKY PRN Reason: Protocol Stop: 04/29/17 07:29 Last Admin: 03/14/17 12:12 Dose: Not Given [place] Carbonate (Eskalith) 450 mg PO HS [facility] Stop: 04/29/17 20:59 Last Admin: 03/13/17 21:20 Dose: 450 mg Lorazepam (Ativan) 1 mg PO Q6HR PRN PRN Reason: Agitation Magnesium Hydroxide (Milk Of Magnesia) 30 ml PO HS PRN PRN Reason: Constipation Stop: 04/28/17 22:13 Metformin HCl (Glucophage) 1,000 mg PO BID [facility] Stop: 04/29/17 08:59 Last Admin: 03/14/17 08:29 Dose: 1,000 mg Multivitamins/Vitamin C (Theragran) 1 tab PO DAILY [facility] Stop: 04/29/17 08:59 Last Admin: 03/14/17 08:29 Dose: 1 tab Oxcarbazepine (Trileptal) 600 mg PO BID RICKY PRN Reason: Protocol Stop: 04/29/17 08:59 Last Admin: 03/14/17 08:29 Dose: 600 mg Quetiapine Fumarate 50 mg/ (Quetiapine Fumarate 25 mg) 75 mg PO HS [facility]ICK[facility] Stop: 05/11/17 20:59 Last Admin: 03/13/17 21:20 Dose: 75 mg Risperidone (Risperdal) 3 mg PO BID RICKY PRN Reason: Protocol Stop: 04/29/17 16:59 Last Admin: 03/14/17 08:29 Dose: 3 mg Sitagliptin Phosphate (Januvia) 100 mg PO DAILY [facility] Stop: 04/29/17 08:59 Last Admin: 03/14/17 08:29 Dose: 100 mg Sodium Chloride (Nacl Tab) 1 gm PO BID [facility] Stop: 04/29/17 08:59 Last Admin: 03/14/17 08:29 Dose: 1 gm General: demented HEENT: NC/AT, PERRLA Neck: Supple, No JVD Lungs: CTAB Cardiovascular: RRR, Normal S1, Normal S2 Abdomen: soft non-tender, globular, positive bowel sound Extremities: excoriation Neurological: no change Internal Medicine Assmt/Plan - Assessment Assessment: dm \anemia htn elevated chol low na gerd hyperglecemia decub ulcer - Plan Plan: ada diet low na diet cont on statin cont on ppi dw rn Nutritional Asmnt/Malnutr-PDOC - Dietary Evaluation Malnutrition Findings (Please click <Entered> for more info): Nutritional Asmnt/Malnutrition Start: 03/01/17 15: 04 Text: Status: Complete Freq: Document 03/01/17 15:04 GSUN (Rec: 03/01/17 15:20 [email or web address] [id number]) Nutritional Asmnt/Malnutrition Patient General Information Nutritional Screening Consult Diagnosis Agitation Pertinent Medical Hx/Surgical Hx DM, HTN, hypercholesterolemia, GERD, thrombocytosis Subjective Information 67 year old female from SNF. RD consult for wounds, scar tissue. Pt is a poor historian , able to repeatedly ask for coffee, however kept going off topic and was unable to answer RD's questions. Pt appeared thin, mild wasting to chest and legs noted. Pt is edentulous, denied difficulties chewing. Avg PO intake 100% of meals, meeting nutritional needs. Current Diet Order/ Nutrition Support Regular Pertinent Medications Os-Magno, Iron, Glucotrol, Novolog, MOM, Glucophage, Theragran Pertinent Labs /: glucose 178H. Nutritional Hx/Data Height 1.7 m Height (Calculated Centimeters) 170.2 Current Weight (lbs) 55.928 kg Weight (Calculated Kilograms) 55.9 Weight (Calculated Grams) 89539.9 [place] Body Weight 135 Weight Status Approriate GI Symptoms Food Allergies No Usual diet at home Sparkle [place]ar[place]: regular, EMMA, all vegetables cooked, thin liquids Skin Integrity/Comment: Prasanna 22. Current %PO Good (75-100%) Estimated Nutritional Goals Calories/Kcals/Kg IBW 135lb/61.4kg Kcals Calculated 1535-1842kcal (25-30kcal/kg) Protein g/kg: IBW Protein Calculated 61g (1g/kg) Fluid: ml 1535-1842ml (1ml/kcal) Nutritional Problem 1. Problem Problem Altered nutrition related laboratory values related to Etiology DM aeb Signs/Symptoms: H&P, elevated glucose levels, pt is on DM medications Intervention/Recommendation Comments 1. Recommend [id number] to promtoe glycemic control. Expected Outcomes/Goals Expected Outcomes/Goals 1. PO intake continue to meet at least 75% of estimated nutritional needs.
--- NOTE | 2017-03-15 22:57 | Discharge Summary ---
DATE OF DISCHARGE: 03/14/2017 ADMITTING DIAGNOSIS: Schizophrenia. HISTORY OF PRESENT ILLNESS: The patient is a 67-year-old female with history of schizophrenia admitted for decompensation with aggression, paranoia, and striking out, believing that people are conspiring against her. TREATMENT COURSE/MEDICAL: The patient has no new medical problems. We will monitor for diabetes as well as hypertension and reflux. TREATMENT COURSE/PSYCHIATRIC: History with medications for psychosis. Medications were titrated and adjusted. Recently, she was engaged in group therapy and individual therapy. We are working with her daily on insight and coping skills. MEDICATIONS: Include Trileptal for mood stabilization, Seroquel for psychosis, Risperdal for paranoid delusions as well as lithium for mood swings. The patient did well on this combination of medications. She had stabilization of her mood, affect, and behavior. At time of discharge, she was significantly improved and was able contract for safety and not harm self or others. DIFFERENTIAL DIAGNOSES: AXIS I: Schizoaffective. AXIS II: Deferred. AXIS III: Hypertension and diabetes. PLAN: To discharge to outpatient facility. JOB# [id number]
== END 2017-03-14 14:30 | DRG 885 ==
LOC: ER 19:17 → GERO 23:20
PROVIDERS: ADMIT Psychiatry & Neurology Psychiatry; ATTEND Psychiatry & Neurology Psychiatry
PROC: GZHZZZZ Group Psychotherapy (ICD-10-PCS; principal; 2017-03-14)
DX: F25.9 Schizoaffective disorder, unspecified (principal); D69.6 Thrombocytopenia, unspecified; E87.1 Hypo-osmolality and hyponatremia; E11.65 Type 2 diabetes mellitus with hyperglycemia; Z91.14 Patient's other noncompliance with medication regimen; I10 Essential (primary) hypertension; E78.00 Pure hypercholesterolemia, unspecified; D64.9 Anemia, unspecified; D72.829 Elevated white blood cell count, unspecified; K21.9 Gastro-esophageal reflux disease without esophagitis; Z88.2 Allergy status to sulfonamides; Z88.8 Allergy status to other drugs, medicaments and biological substances; Z79.4 Long term (current) use of insulin; Z79.82 Long term (current) use of aspirin; Z82.49 Family history of ischemic heart disease and other diseases of the circulatory system
CPT/HCPCS: 36415-UA; 71010-TC; 80053-TC; 80178-TC; 80320-TC; 81001-TC; 82150-TC; 82550-TC; 82553; 82948-90; 83690-TC; 84443-TC; 84484-TC; 85025-TC; 86592-TC; 93005; J1815; J2001; J7030; Z7610